=== PATIENT | male | born 1940 | race Caucasian/White ===

== ENCOUNTER 2016-06-28 19:05 | Emergency (ER) | payer MEDICARE, OTHER ==
[2016-06-28 19:59] LABS: PROTHROMBIN TIME 14.4 SEC (11.4-15.4)
[2016-06-28 20:02] LABS: ALANINE AMINOTRANSFERASE 95 U/L (21-72); ALBUMIN 4.7 g/dL (3.5-5.0); ALKALINE PHOSPHATASE 118 U/L (38-126); ANION GAP 13 (5-19); ASPARTATE AMINO TRANSFERASE 70 U/L (17-59); BILIRUBIN,TOTAL 1.5 mg/dL (0.2-1.3); BLOOD UREA NITROGEN 14 mg/dL (7-20); CALCIUM 9.8 mg/dL (8.4-10.2); CARBON DIOXIDE 23 mmol/L (22-30); CHLORIDE 106 mmol/L (98-107); CREATINE KINASE 134 U/L (55-170); CREATININE RESULT 0.96 mg/dL (0.52-1.25); GLUCOSE 81 mg/dL (75-110); POTASSIUM 4.2 mmol/L (3.6-5.0); TOTAL PROTEIN 7.9 g/dL (6.3-8.2)
[2016-06-28 20:05] LABS: ABSOLUTE BASOPHILS # (AUTO) 0.1 10^3/uL (0.0-0.2); ABSOLUTE EOSINOPHILS # (AUTO) 0.5 10^3/uL (0.0-0.6); ABSOLUTE LYMPHOCYTES (AUTO) 3.1 10^3/uL (0.5-4.7); ABSOLUTE MONOCYTES (AUTO) 1.6 10^3/uL (0.1-1.4); ABSOLUTE NEUT (AUTO) 3.4 10^3/uL (1.7-8.2); BASOPHILS % (AUTO) 1.2 % (0-2); EOSINOPHILS % (AUTO) 6.1 % (0-6); HEMATOCRIT 44.6 % (37.9-51.0); HEMOGLOBIN 15.6 g/dL (13.5-17.0); HGB HCT DIFFERENCE 2.2; MEAN CORPUSCULAR HEMOGLOBIN 34.2 pg (27.0-33.4); MEAN CORPUSCULAR VOLUME 98 fl (80-97); MONOCYTES % (AUTO) 18.6 % (3-13); RED BLOOD COUNT 4.57 10^6/uL (4.35-5.55); RED CELL DISTRIBUTION WIDTH 13.2 % (11.5-14.0); SEGMENTED NEUTROPHILS % (AUTO) 39.1 % (42-78); WHITE BLOOD COUNT 8.8 10^3/uL (4.0-10.5)
[2016-06-28 20:14] LABS: CREATINE KINASE MB 1.96 ng/mL (<4.55)
[2016-06-28 20:20] LABS: TROPONIN I < 0.012 ng/mL
[2016-06-28] MEDS ORDERED: ASPIRIN 81 MG TABLET, CHEWABLE PO ONE (21:23)
--- NOTE | 2016-06-28 21:25 | ER Document Report ---
ED General - General Chief Complaint: Weakness Stated Complaint: LEFT ARM WEAKNESS Notes: Patient is a 76-year-old male with past medical history of hyperlipidemia who presents with a brief episode of left upper extremity weakness and clumsiness. States that he noticed that he was unable to crop picker a television remote and felt like he could not feel where his hand was located. This occurred just prior to arrival but did spontaneously resolve. Nothing improved or worsen the symptoms. He has no history of similar symptoms in the past. He did not speak to his prior care physician regarding today's concerns. He denies any associated difficulty speaking, confusion, headache, chest pain, shortness of breath, or vomiting. - Related Data Allergies/Adverse Reactions: ceftriaxone [From Rocephin] Allergy (Verified 06/28/16 20:54) Past Medical History - General Information source: Patient - Social History Smoking Status: Never Smoker Frequency of alcohol use: None Drug Abuse: None Lives with: Spouse/Significant other Family History: Reviewed & Not Pertinent Review of Systems - Review of Systems Notes: Constitutional: Negative for fever. HENT: Negative for sore throat. Eyes: Negative for visual changes. Cardiovascular: Negative for chest pain. Respiratory: Negative for shortness of breath. Gastrointestinal: Negative for abdominal pain, vomiting or diarrhea. Genitourinary: Negative for dysuria. Musculoskeletal: Negative for back pain. Skin: Negative for rash. Neurological: Negative for headaches, weakness or numbness. 10 point ROS negative except as marked above and in HPI. Physical Exam - Vital signs Vitals: Resp BP Pulse Ox 21 H 156/79 H 96 06/28/16 19:13 06/28/16 19:13 06/28/16 19:13 Interpretation: Hypertensive Notes: PHYSICAL EXAMINATION: GENERAL: Well-appearing, well-nourished and in no acute distress. HEAD: Atraumatic, normocephalic. EYES: Pupils equal round and reactive to light, extraocular movements intact, sclera anicteric, conjunctiva are normal. ENT: nares patent, oropharynx clear without exudates. Moist mucous membranes. NECK: Normal range of motion, supple without lymphadenopathy LUNGS: Breath sounds clear to auscultation bilaterally and equal. No wheezes rales or rhonchi. HEART: Regular rate and rhythm without murmurs ABDOMEN: Soft, nontender, normoactive bowel sounds. No guarding, no rebound. No masses appreciated. EXTREMITIES: Normal range of motion, no pitting or edema. No cyanosis. NEUROLOGICAL: Face symmetric. Tongue protrudes midline. Extraocular motions intact. Pupils are 2 mm and equally reactive. Normal speech, normal gait. 5 out of 5 strength in both the distal and proximal upper and lower extremities bilaterally. Sensation is grossly intact throughout. Finger to nose testing normal. Pronator drift normal. PSYCH: Normal mood, normal affect. SKIN: Warm, Dry, normal turgor, no rashes or lesions noted. Course - Re-evaluation Re-evalutation: 06/28/16 21:20 Patient presents with symptoms most consistent with a TIA likely a lacunar distribution. Patient had isolated left upper extremity weakness which has since completely resolved. Weakness lasted for only 15 minutes. He did not have any additional symptoms. He has no neurologic deficits at this time and his NIH stroke scale is 0. Patient had a carotid Doppler done 2 months ago which was noted to be normal without any significant stenoses. He is already medically managed for hypertension and hyperlipidemia. He does not smoke. I have restarted him on a daily aspirin. I do not see an indication for admission at this time as patient is a 32 medically managed and will maximize his medical management with aspirin at this time. He has Y for a complete agreement with this plan and have declined admission to the hospital as an alternative management plan.At this time will discharge with return precautions and follow-up recommendations. Verbal discharge instructions given a the bedside and opportunity for questions given. Medication warnings reviewed. Patient is in agreement with this plan and has verbalized understanding of return precautions and the need for primary care follow-up in the next 24-72 hours. - Vital Signs Vital signs: Temp Pulse Resp BP Pulse Ox 98.2 F 78 18 158/78 H 95 06/28/16 21:42 06/28/16 21:55 06/28/16 21:55 06/28/16 21:55 06/28/16 21:50 - Laboratory Result Diagrams: 06/28/16 19:26 06/28/16 19:26 Laboratory results interpreted by me: 06/28/16 06/28/16 19:26 19:26 MCV 98 H MCH 34.2 H Seg Neutrophils % 39.1 L Monocytes % 18.6 H Eosinophils % 6.1 H Absolute Monocytes 1.6 H Total Bilirubin 1.5 H AST 70 H ALT 95 H - Diagnostic Test Radiology reviewed: Image reviewed, Reports reviewed Radiology results interpreted by me: 06/28/16 21:22 CT head: No acute intrarenal bleed - EKG Interpretation by Me Additional EKG results interpreted by me: 06/28/16 21:24 Sinus rhythm. Rate 80. No ST elevations or depressions. QTC 462. Discharge - Discharge Clinical Impression: TIA (transient ischemic attack) Qualifiers: Transient cerebral ischemia type: unspecified Qualified Code(s): G45.9 - Transient cerebral ischemic attack, unspecified Condition: Good Disposition: HOME, SELF-CARE Additional Instructions: Your symptoms today are most consistent with a transient ischemic attack also known as a mini stroke. You need to take 81 mg of aspirin daily. Continue your medications for blood pressure and cholesterol at home. Follow-up with your primary care doctor as well as your otolaryngology rep in the next 24-48 hours. Return to the emergency department immediately if you have recurrence of your symptoms, difficulty speaking, confusion, numbness, imbalance, or any other symptoms that are concerning to you.
[2016-06-28 21:56] VITALS: BP 158/78
--- NOTE | 2016-06-28 22:07 | EKG REPORT ---
SEVERITY:- NORMAL ECG - SINUS RHYTHM : Confirmed by: Lay Camarillo 28-Jun-2016 22:07:20
== END 2016-06-28 21:52 | disposition home or self-care (01) ==
LOC: ER 19:05
DX: G45.9 Transient cerebral ischemic attack, unspecified (principal); R53.1 Weakness; I10 Essential (primary) hypertension; E78.5 Hyperlipidemia, unspecified; Z79.899 Other long term (current) drug therapy; Z88.1 Allergy status to other antibiotic agents
CPT/HCPCS: 93005; 99285; 36415; 82553; 82550; 85025; 85610; 85730; 80053; 84484; 71010; 70450; 93010; A9270

== ENCOUNTER 2017-03-28 09:53 | Observation (INO) | payer MEDICARE, OTHER ==
--- NOTE | 2017-03-28 09:57 | ER Document Report ---
ED Medical Screen (RME) - General Stated Complaint: STROKE LIKE SYMPTOMS Notes: 77-year-old male patient woke up almost 3 hours ago with right upper and lower extremity weakness. Similar episode involving the left upper extremity in June 2016 that only lasted about 15 minutes. I have greeted and performed a rapid initial assessment of this patient. A comprehensive ED assessment and evaluation of the patient, analysis of test results and completion of the medical decision making process will be conducted by additional ED providers. - Related Data Allergies/Adverse Reactions: ceftriaxone [From Rocephin] Allergy (Verified 03/28/17 09:54)
--- NOTE | 2017-03-28 10:13 | ER Document Report ---
ED General - General Chief Complaint: S/S of Possible Stroke Stated Complaint: STROKE LIKE SYMPTOMS Time Seen by Provider: 03/28/17 09:57 Notes: 77-year-old male with hypertension presents with onset of perceived weakness and dizziness this morning. Acute. Moderate. Resolving. It was present when he woke up and got worse when he tried to walk to the bathroom. He describes it as "swaying" and attributes the weakness to his right leg. Did not fall. He initially told me he had "right-sided weakness" but now states that his right arm is not in fact week. He was brought to the ED as a possible stroke alert. He went to bed feeling fine. He specifically denies numbness tingling difficulty speaking and his states that his face looks baseline. TRAVEL OUTSIDE OF THE [place] IN LAST 30 DAYS: No - Related Data Allergies/Adverse Reactions: ceftriaxone [From Rocephin] Allergy (Verified 03/28/17 09:54) Home Medications: Current Home Medications Amlodipine Besylate [Norvasc 10 mg Tablet] 10 mg PO QPM 03/28/17 [History] Aspirin [Aspirin 81 mg Chewable Tablet] 81 mg PO DAILY 03/28/17 [History] Esomeprazole Magnesium [Nexium 24Hr] 20 mg PO DAILY 03/28/17 [History] Pregabalin [Lyrica] 150 mg PO BID 03/28/17 [History] Simvastatin [Zocor 10 mg Tablet] 10 mg PO QPM 03/28/17 [History] Past Medical History - Social History Smoking Status: Never Smoker Family History: Reviewed & Not Pertinent Patient has suicidal ideation: No Patient has homicidal ideation: No Renal/ Medical History: Denies: Hx Peritoneal Dialysis Review of Systems - Review of Systems Notes: REVIEW OF SYSTEMS GEN: Denies fever, chills, weight loss ENT: Denies sore throat, nasal discharge, ear pain EYES: Denies blurry vision, eye pain, discharge CV: Denies chest pain, palpitations, edema RESP: Denies cough, shortness of breath, wheezing GI: Denies abdominal pain, nausea, vomiting, diarrhea MSK: Right shoulder pain, left hip giving out, SKIN: Denies rash, skin lesions LYMPH: Denies swollen glands/lymph nodes NEURO: Dizziness gait instability, possible right-sided weakness denies headache , f PSYCH: Denies depression, suicidal or homicidal ideation PHYSICAL EXAMINATION General: No acute distress, well-nourished Head: Atraumatic, normocephalic ENT: Mouth normal, oropharynx moist, no exudates or tonsillar enlargement Eyes: Conjunctiva normal, pupils equal, lids normal Neck: No JVD, supple, no guarding CVS: Normal rate, regular rhythm, no murmurs Resp: No resp distress, equal and normal breath sounds bilaterally GI: Nondistended, soft, no tenderness to palpation, no rebound or guarding Ext: No deformities, no edema, normal range of motion in upper and lower ext Back: No CVA or midline TTP Skin: No rash, warm Lymphatic: No lymphadeopathy noted Neuro: Awake, alert. Face symmetric. GCS 15. Cranial nerves II through XII completely intact. No pronator drift. 5 out of 5 strength in all 4 extremities with normal sensation. Normal [id number], normal heel to gaffney. Fluent speech. Intact naming. Keenly awake and alert. Physical Exam - Vital signs Vitals: Pulse Resp BP Pulse Ox 77 16 169/82 H 97 03/28/17 09:54 03/28/17 09:54 03/28/17 09:54 03/28/17 09:54 Course - Re-evaluation Re-evalutation: 03/28/17 10:14 Patient seen immediately by me on arrival for acute neurologic deficit/ complaint. Patient presents with initial complaint of right-sided weakness but more clearly is complaining of difficulty walking and dizziness. His neurologic exam is completely normal and his NIH stroke score is 0. I do not think he is having a stroke or an acute bleed. CT done before my evaluation is read negative and I spoke with radiologist to confirm this. I will get an EKG and basic labs. We will observe him closely in the ED. His only risk factor for stroke is hypertension. Doubt TIA given the story. 03/28/17 10:50 Reassessed the patient. He still feels well. I got him up to walking. He has no ataxia, but he is dragging his right leg. My previous strength exam had been normal however his gait reveals some subtle weakness. He still out of the window for TPA but I will admit him for further workup. 03/28/17 11:[address] accepted by Dr[address] horowitz. Aspirin ordered. - Vital Signs Vital signs: Temp Pulse Resp BP Pulse Ox 98.4 F 77 14 130/82 H 97 03/28/17 10:13 03/28/17 09:54 03/28/17 11:01 03/28/17 11:01 03/28/17 11:01 - Laboratory Result Diagrams: 03/28/17 10:16 03/28/17 10:16 Laboratory results interpreted by me: 03/28/17 03/28/17 03/28/17 10:08 10:16 10:16 Hgb 17.2 H MCV 99 H MCH 35.3 H Sodium 146.2 H Glucose 145 H POC Glucose 170 H ALT 86 H Alkaline Phosphatase 156 H Creatine Kinase 231 H Total Protein 9.0 H Albumin 5.2 H - Diagnostic Test Radiology reviewed: Image reviewed, Reports reviewed - EKG Interpretation by Me EKG shows normal: Sinus rhythm Rhythm: NSR When compared to previous EKG there are: No significant change Critical Care Note - Critical Care Note Total time excluding time spent on procedures (mins): 35 - The above patient is critically ill. Not including procedures, but including direct re-evaluations, speaking with patient and/or consultants, interpreting results, and documenting , I spent the total amount of minute listed listed above on critical care time Discharge - Discharge Clinical Impression: Stroke Qualifiers: CVA mechanism: other Qualified Code(s): I63.8 - Other cerebral infarction Condition: Fair Disposition: ADMITTED INPATIENT Admitting Provider: Hospitalist Unit Admitted: Telemetry
--- NOTE | 2017-03-28 10:20 | RADIOLOGY REPORT (SQ) ---
EXAM DESCRIPTION: CT HEAD WITHOUT COMPLETED DATE/TIME: 03/28/2017 10:08 am REASON FOR STUDY: new right side weakness COMPARISON: 06/28/2016. TECHNIQUE: Axial images acquired through the brain without intravenous contrast. Images reviewed wi th bone, brain and subdural windows. Images stored on PACS. All CT scanners at this facility use dose modulation, iterative reconstruction, and/or weight based d osing when appropriate to reduce radiation dose to as low as reasonably achievable (ALARA). [facility]: Dose Right [facility]: CareDose [facility]: Dose Right [facility]: Teradose 4D [facility]: [employer] RADIATION DOSE: mGy. LIMITATIONS: None. FINDINGS: VENTRICLES: Prominent. CEREBRUM: No masses. No hemorrhage. No midline shift. Areas of low density in the white matter mos t likely due to chronic micro-vascular ischemic change. No evidence for acute infarction. CEREBELLUM: No masses. No hemorrhage. No alteration of density. No evidence for acute infarction. EXTRAAXIAL SPACES: Age-related involutional change. No fluid collections. No masses. ORBITS AND GLOBE: No intra- or extraconal masses. Normal contour of globe without masses. CALVARIUM: No fracture. PARANASAL SINUSES: No fluid or mucosal thickening. SOFT TISSUES: No mass or hematoma. OTHER: No other significant finding. IMPRESSION: CHRONIC CHANGES OF ATROPHY AND MICROVASCULAR ISCHEMIA. NO ACUTE PROCESS. EVIDENCE OF ACUTE STROKE: NO. COMMENT: Pertinent positive or negative findings of the imaging study reported as a CRITICAL EXAM lisy ramya WHITE at10:12 on 03/28/2017. Category of Critical Exam: Stroke protocol. TECHNICAL DOCUMENTATION: JOB ID: [id number] Quality ID # [id number]: Final reports with documentation of one or more dose reduction techniques (e.g., Au tomated exposure control, adjustment of the mA and/or kV according to patient size, use of iterative reconstruction technique) 2010 [employer]- All Rights Reserved
[2017-03-28 10:27] LABS: ABSOLUTE BASOPHILS # (AUTO) 0.1 10^3/uL (0.0-0.2); ABSOLUTE EOSINOPHILS # (AUTO) 0.4 10^3/uL (0.0-0.6); ABSOLUTE MONOCYTES (AUTO) 0.9 10^3/uL (0.1-1.4); ABSOLUTE NEUT (AUTO) 3.4 10^3/uL (1.7-8.2); BASOPHILS % (AUTO) 1.1 % (0-2); EOSINOPHILS % (AUTO) 5.6 % (0-6); HEMATOCRIT 48.1 % (37.9-51.0); HEMOGLOBIN 17.2 g/dL (13.5-17.0); HGB HCT DIFFERENCE 3.5; LYMPHOCYTES % (AUTO) 38.3 % (13-45); MEAN CORPUSCULAR HEMOGLOBIN 35.3 pg (27.0-33.4); MEAN CORPUSCULAR HGB CONC 35.7 g/dL (32.0-36.0); MEAN CORPUSCULAR VOLUME 99 fl (80-97); MONOCYTES % (AUTO) 11.1 % (3-13); RED BLOOD COUNT 4.87 10^6/uL (4.35-5.55); RED CELL DISTRIBUTION WIDTH 13.3 % (11.5-14.0); SEGMENTED NEUTROPHILS % (AUTO) 43.9 % (42-78); WHITE BLOOD COUNT 7.8 10^3/uL (4.0-10.5)
[2017-03-28 10:51] LABS: PROTHROMBIN TIME 13.1 SEC (11.4-15.4)
[2017-03-28 10:52] LABS: ALANINE AMINOTRANSFERASE 86 U/L (21-72); ALBUMIN 5.2 g/dL (3.5-5.0); ALKALINE PHOSPHATASE 156 U/L (38-126); ANION GAP 16 (5-19); ASPARTATE AMINO TRANSFERASE 59 U/L (17-59); BILIRUBIN,DIRECT 0.4 mg/dL (0.0-0.4); BILIRUBIN,TOTAL 1.3 mg/dL (0.2-1.3); BLOOD UREA NITROGEN 16 mg/dL (7-20); CALCIUM 9.6 mg/dL (8.4-10.2); CARBON DIOXIDE 25 mmol/L (22-30); CHLORIDE 105 mmol/L (98-107); CREATINE KINASE 231 U/L (55-170); GLUCOSE 145 mg/dL (75-110); POTASSIUM 3.8 mmol/L (3.6-5.0); SODIUM 146.2 mmol/L (137-145)
--- NOTE | 2017-03-28 11:05 | RADIOLOGY REPORT (SQ) ---
EXAM DESCRIPTION: CHEST SINGLE VIEW COMPLETED DATE/TIME: 03/28/2017 10:50 am REASON FOR STUDY: STROKE ALERT COMPARISON: 06/28/2016 and 06/14/2008. . EXAM PARAMETERS: NUMBER OF VIEWS: One view. TECHNIQUE: Single frontal radiographic view of the chest acquired. RADIATION DOSE: NA LIMITATIONS: None. FINDINGS: LUNGS AND PLEURA: Indistinct appearance in the left lung base with hazy appearance of the hemidiaphragm and costophrenic angle. Right lung generally clear. MEDIASTINUM AND HILAR STRUCTURES: No masses. Contour normal. HEART AND VASCULAR STRUCTURES: Heart upper limits of normal in size. Normal vasculature. BONES: Deformity of the lower left ribs. HARDWARE: None in the chest. OTHER: No other significant finding. IMPRESSION: CHANGES IN THE LEFT LUNG BASE WITH RIB DEFORMITY. SOME OF THIS IS CHRONIC AND PRESUMABL Y RELATED TO PRIOR SURGERY OR INJURY. HAZY APPEARANCE OF THE LEFT LUNG BASE SIMILAR TO THE X-RAY FRO M 06/28/2016. THIS MAY BE DUE TO SCARRING ALTHOUGH INFILTRATE OR PLEURAL EFFUSION/ PLEURAL THICKENING CANNOT BE EXCLUDED. TECHNICAL DOCUMENTATION: JOB ID: [id number]
[2017-03-28] MEDS ORDERED: ASPIRIN 325 MG TABLET PO ONE (11:19)
[2017-03-28] MEDS ORDERED: ACETAMINOPHEN 325 MG TABLET PO PRN (11:27)
[2017-03-28] MEDS ORDERED: ONDANSETRON 4 MG TAB.RAPDIS PO PRN ×2 (11:27→12:30)
--- NOTE | 2017-03-28 12:52 | RADIOLOGY REPORT (SQ) ---
EXAM DESCRIPTION: MRI HEAD WITHOUT COMPLETED DATE/TIME: 03/28/2017 12:39 pm REASON FOR STUDY: stroke COMPARISON: 03/28/2017 and 06/28/2016. TECHNIQUE: Multiplanar imaging includes non-contrasted T1, T2, FLAIR, and diffusion with ADC map seq uences. Images stored on PACS. LIMITATIONS: None. FINDINGS: ANATOMY: No anomalies. Normal vascular flow voids. Pituitary fossa normal. CSF SPACES: Atrophy induced prominence of ventricles and CSF spaces. CEREBRUM: High signal intensity lesions scattered throughout the white matter on FLAIR imaging with d istribution suggesting micro-vascular ischemic changes. No evidence of hemorrhage, mass, or extraaxi al fluid collection. POSTERIOR FOSSA: No signal alteration. No hemorrhage. No edema, masses or mass effect. Internal ceci tory canals, cerebello-pontine angles, mastoids normal. DIFFUSION IMAGING: Linear area of restricted diffusion in the medial left parietal lobe. ORBITS: No masses. Globes normal. PARANASAL SINUSES: No fluid levels. Mucosa normal. OTHER: No other significant finding. IMPRESSION: ATROPHY AND CHRONIC MICRO-VASCULAR ISCHEMIC CHANGES. LINEAR AREA OF RESTRICTED DIFFUSIO N IN THE MEDIAL LEFT PARIETAL LOBE CONSISTENT WITH ACUTE INFARCT. THIS IS AT THE INTERFACE BETWEEN T HE LEFT ANTERIOR AND MIDDLE CEREBRAL ARTERY TERRITORIES AND COULD BE A WATERSHED INFARCT. EVIDENCE OF ACUTE STROKE: YES. LEFT LALA TECHNICAL DOCUMENTATION: JOB ID: [id number]- All Rights Reserved
[2017-03-28] MEDS ORDERED: ONDANSETRON HCL INJ/PF 4 MG/2 ML SDV ONE (21:11)
--- NOTE | 2017-03-28 21:33 | EKG REPORT ---
SEVERITY:- NORMAL ECG - SINUS RHYTHM : Confirmed by: Lay Camarillo 28-Mar-2017 21:31:53
[2017-03-28] MEDS ORDERED: ONDANSETRON HCL INJ/PF 4 MG/2 ML SDV IV ONE (22:00)
[2017-03-28] MEDS ORDERED: ATORVASTATIN CALCIUM 80 MG TABLET PO SCH (22:00)
[2017-03-28] MEDS: PREGABALIN 75 MG CAPSULE PO SCH (23:27)
[2017-03-29 06:56] LABS: CHOLESTEROL 214.21 mg/dL (0-200); Direct HDL 39 mg/dL (>40); TRIGLYCERIDES 174 mg/dL (<150)
[2017-03-29 07:07] LABS: DIRECT LDL 142 mg/dL (<100)
[2017-03-29 07:25] LABS: THYROID STIMULATING HORMONE 2.37 uIU/mL (0.47-4.68)
[2017-03-29 08:09] LABS: FOLATE > 20.00 ng/mL (>2.76); VLDL CHOLESTEROL 34.8 mg/dL (10-31)
--- NOTE | 2017-03-29 08:09 | PDOC H&P ---
History of Present Illness Admission Date/PCP: 03/28/17 11:45 Patient complains of: Right leg weakness History of Present Illness: CHRIS AGUDELO is a 77-year-old right handed history of coronary artery disease, hypertension, dyslipidemia and chronic pain who presents with history of right leg weakness. Patient states when he went to bed last night he was normal when he woke up this morning the right leg was weak. Patient does not feel any numbness in his leg however when he stood up to walk he could not hold his own weight. He states he was unsteady and wobbling all over the place. Patient denies any change in vision slurred speech facial droop or focal weakness in any other part of his body. Patient states this happened before with his left arm becoming weak after he stopped taking his aspirin. Patient was told that he had a TIA. Patient has since then went back on his baby aspirin. In the ED patient was sitting up in the bed in no acute distress. Patient states he feels fine although a little bit weak. Patient states he has been feeling weak for quite some time now. The hospitalist was called to admit for further evaluate patient for possible stroke. Past Medical History Cardiac Medical History: Reports: Coronary Artery Disease, Hypertension Pulmonary Medical History: Reports: None EENT Medical History: Reports: None Neurological Medical History: Reports: Other - TIA Endocrine Medical History: Reports: None Renal/ Medical History: Reports: Nephrolithiasis Malignancy Medical History: Reports: None GI Medical History: Reports: None Musculoskeltal Medical History: Reports: None Skin Medical History: Reports: None Psychiatric Medical History: Reports: None Traumatic Medical History: Reports: None Hematology: Reports: None Past Surgical History Past Surgical History: Reports: Splenectomy, Other - Pneumonectomy Social History Information Source: Patient Lives with: Spouse/Significant other Smoking Status: Former Smoker Frequency of Alcohol Use: None Hx Recreational Drug Use: No Hx Prescription Drug Abuse: No - Advance Directive Resuscitation Status: Full Code Family History Family History: CAD, Malignancy Parental Family History Reviewed: No Children Family History Reviewed: No Sibling(s) Family History Reviewed.: No Medication/Allergy Home Medications: Amlodipine Besylate [Norvasc 10 mg Tablet] 10 mg PO QPM 03/28/17 Aspirin [Aspirin 81 mg Chewable Tablet] 81 mg PO DAILY 03/28/17 Pregabalin [Lyrica] 150 mg PO BID 03/28/17 Simvastatin [Zocor 10 mg Tablet] 10 mg PO QPM 03/28/17 Allergies/Adverse Reactions: ceftriaxone [From Rocephin] Allergy (Verified 03/28/17 09:54) Review of Systems Constitutional: PRESENT: fatigue. ABSENT: chills, fever(s), headache(s), weight gain, weight loss Eyes: ABSENT: visual disturbances Ears: ABSENT: hearing changes Cardiovascular: ABSENT: chest pain, dyspnea on exertion, edema, orthropnea, palpitations Respiratory: ABSENT: cough, hemoptysis Gastrointestinal: ABSENT: abdominal pain, constipation, diarrhea, hematemesis, hematochezia, nausea, vomiting Genitourinary: ABSENT: dysuria, hematuria Musculoskeletal: ABSENT: joint swelling Integumentary: ABSENT: rash, wounds Neurological: PRESENT: focal weakness - Right leg weakness. ABSENT: abnormal gait, abnormal speech, confusion, dizziness, syncope Psychiatric: ABSENT: anxiety, depression, homidical ideation, suicidal ideation Endocrine: ABSENT: cold intolerance, heat intolerance, polydipsia, polyuria Hematologic/Lymphatic: ABSENT: easy bleeding, easy bruising Physical Exam Vital Signs: Temp Pulse Resp BP Pulse Ox 98.0 F 66 16 154/70 H 94 03/28/17 17:10 03/28/17 17:10 03/28/17 17:10 03/28/17 17:10 03/28/17 17:10 Intake & Output 03/27/17 03/28/17 03/29/17 06:59 06:59 06:59 Intake Total 300 Balance 300 General appearance: PRESENT: no acute distress, well-developed, well-nourished Head exam: PRESENT: normocephalic Eye exam: PRESENT: conjunctiva pink, EOMI, PERRLA. ABSENT: scleral icterus Ear exam: PRESENT: normal external ear exam Mouth exam: PRESENT: moist Neck exam: ABSENT: carotid bruit, JVD, lymphadenopathy, thyromegaly Respiratory exam: PRESENT: clear to auscultation khoa. ABSENT: rales, rhonchi, wheezes Cardiovascular exam: PRESENT: RRR. ABSENT: diastolic murmur, rubs, systolic murmur Pulses: PRESENT: normal dorsalis pedis pul Vascular exam: PRESENT: normal capillary refill GI/Abdominal exam: PRESENT: normal bowel sounds, soft. ABSENT: distended, guarding, mass, organolmegaly, rebound, tenderness Rectal exam: PRESENT: deferred Extremities exam: PRESENT: full ROM. ABSENT: calf tenderness, clubbing, pedal edema Neurological exam: PRESENT: alert, awake, oriented to person, oriented to place , oriented to time, oriented to situation, CN II-XII grossly intact, other - Mild right leg weakness.. ABSENT: motor sensory deficit Psychiatric exam: PRESENT: appropriate affect, normal mood. ABSENT: homicidal ideation, suicidal ideation Skin exam: PRESENT: dry, intact, warm. ABSENT: cyanosis, rash Results Impressions: Chest X-Ray 03/28/17 00:00 IMPRESSION: CHANGES IN THE LEFT LUNG BASE WITH RIB DEFORMITY. SOME OF THIS IS CHRONIC AND PRESUMABLY RELATED TO PRIOR SURGERY OR INJURY. HAZY APPEARANCE OF THE LEFT LUNG BASE SIMILAR TO THE X-RAY FROM 06/28/2016. THIS MAY BE DUE TO SCARRING ALTHOUGH INFILTRATE OR PLEURAL EFFUSION/ PLEURAL THICKENING CANNOT BE EXCLUDED. Head MRI 03/28/17 00:00 IMPRESSION: ATROPHY AND CHRONIC MICRO-VASCULAR ISCHEMIC CHANGES. LINEAR AREA OF RESTRICTED DIFFUSION IN THE MEDIAL LEFT PARIETAL LOBE CONSISTENT WITH ACUTE INFARCT. THIS IS AT THE INTERFACE BETWEEN THE LEFT ANTERIOR AND MIDDLE CEREBRAL ARTERY TERRITORIES AND COULD BE A WATERSHED INFARCT. EVIDENCE OF ACUTE STROKE: YES. LEFT LALA Head CT 03/28/17 09:54 IMPRESSION: CHRONIC CHANGES OF ATROPHY AND MICROVASCULAR ISCHEMIA. NO ACUTE PROCESS. EVIDENCE OF ACUTE STROKE: NO. Assessment & Plan - Diagnosis (1) Stroke Qualifiers: CVA mechanism: other Qualified Code(s): I63.8 - Other cerebral infarction Is this a current diagnosis for this admission?: Yes Plan: CVA. CT scan shows a linear area of restricted diffusion in the medial left parietal lobe consistent with acute infarct. Possible a watershed infarct. She currently on high-dose aspirin and started on Plavix. Cardiac echo carotid Dopplers ordered. PT OT consulted. No blood pressure medication started as to encourage higher blood pressures for adequate perfusion to the brain. 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 Will check lipid panel and hemoglobin A1c in the morning. (2) Weakness generalized Is this a current diagnosis for this admission?: Yes Plan: Patient has been feeling weak for sometime. Will check B12 and folate level. Will check TSH and Vitamin D level. (3) Lipidemia Is this a current diagnosis for this admission?: Yes Plan: Continue statin. (4) CAD (coronary artery disease) Is this a current diagnosis for this admission?: Yes Plan: Patient has stenting in 1999 or 2000. Continue aspirin and statin. Patient does not have chest pain at this time. (5) Essential hypertension Is this a current diagnosis for this admission?: Yes Plan: Continue to monitor. No antihypertensive at this time to allow for permissive hypertension. - Time Time Spent: 30 to 50 Minutes Medications reviewed and adjusted accordingly: Yes Anticipated discharge: Home - Inpatient Certification Medical Necessity: Need for Neurological Checks - Patient has accute stress.
[2017-03-29 08:20] VITALS: BP 137/71
[2017-03-29] MEDS ORDERED: ASPIRIN 325 MG TABLET, ENT COATED PO SCH (10:00)
[2017-03-29] MEDS ORDERED: CLOPIDOGREL BISULFATE 75 MG TABLET PO SCH (10:00)
[2017-03-29] MEDS: PREGABALIN 75 MG CAPSULE PO SCH (10:33)
[2017-03-29] MEDS ORDERED: ONDANSETRON HCL INJ/PF 4 MG/2 ML SDV IV PRN (11:57)
[2017-03-29] MEDS ORDERED: NAPROXEN 250 MG TABLET PO ONE (12:00)
--- NOTE | 2017-03-29 16:54 | XCELERA REPORT ---
[address] [address] Transthoracic Echocardiogram Report Name: CHRIS AGUDELO Age: 77 yrs Gender: Male : 1940 Patient Status: Inpatient Patient Location: [address] [place] [address] Study Date: 03/28/2017 02:11 PM Height: 72 in Weight: 212 lb BSA: 2.2 m2 Procedure: A two-dimensional transthoracic echocardiogram with color flow and Doppler was performed. Study Quality: Fair. Reason For Study: TIA History: TIA. Ordering Physician: APPLE FERGUSON Performed By: Karen Loza Interpretation Summary There is no obvious cardiac source of embolus noted on this transthoracic echocardiogram. Follow-up with a JIM is suggested if cardiac source is still suspected. The left ventricle is normal in size. There is normal left ventricular wall thickness. LV EF is 65% Left ventricular systolic function is normal. Doppler measurements suggest impaired left ventricular relaxation, which is associated with grade I/IV or mild diastolic dysfunction The left ventricular wall motion is normal. There is no thrombus. The right ventricle is grossly normal size. The left atrial size is normal. There is mild mitral valve prolapse. There is no mitral valve stenosis. There is a trace amount of mitral regurgitation There is no aortic valvular vegetation. There is no aortic valve stenosis There is no LVOT obstruction. No aortic regurgitation is present. There is no tricuspid stenosis. There is a trace amount of tricuspid regurgitation Right ventricular systolic pressure is normal. RVSP is 29 mm of Hg ,with RA mean of 5. There is no pulmonic valvular stenosis. There is a trace amount of pulmonic regurgitation The aortic root is normal size. There is no pericardial effusion. There is no obvious cardiac source of embolus noted on this transthoracic echocardiogram. Follow-up with a JIM is suggested if cardiac source is still suspected MMode/2D Measurements & Calculations RVDd: 3.1 cm LVIDd: 5.7 cm FS: 35.3 % Ao root diam: 2.7 cm IVSd: 1.0 cm LVIDs: 3.7 cm EDV(Teich): 162.3 ml LVPWd: 1.0 cm ESV(Teich): 58.4 ml Ao root area: 5.5 cm2 EF(Teich): 64.0 % LA dimension: 3.9 cm Doppler Measurements & Calculations MV E max daren: MV P1/2t max daren: Ao V2 max: LV V1 max P.4 cm/sec 47.9 cm/sec 97.7 cm/sec 3.3 mmHg MV A max daren: MV P1/2t: 105.4 msec Ao max PG: LV V1 max: 75.0 cm/sec 3.8 mmHg 90.3 cm/sec MV E/A: 0.63 MVA(P1/2t): 2.1 cm2 MV dec slope: 133.1 cm/sec2 MV dec time: 0.35 sec PA V2 max: PI end-d daren: TR max daren: 81.9 cm/sec 138.5 cm/sec 242.8 cm/sec PA max PG: TR max P.7 mmHg 23.6 mmHg Left Ventricle The left ventricle is normal in size. There is normal left ventricular wall thickness. LV EF is 65%. Left ventricular systolic function is normal. Doppler measurements suggest impaired left ventricular relaxation, which is associated with grade I/IV or mild diastolic dysfunction. The left ventricular wall motion is normal. There is no thrombus. There is no ventricular septal defect visualized. Right Ventricle The right ventricle is grossly normal size. Atria The right atrium is normal. The left atrial size is normal. The interatrial septum is intact with no evidence for an atrial septal defect. Mitral Valve There is mild mitral valve prolapse. There is no vegetation seen on the mitral valve. There is no mitral valve stenosis. There is a trace amount of mitral regurgitation. Aortic Valve There is no aortic valvular vegetation. There is no aortic valve stenosis. There is no LVOT obstruction. No aortic regurgitation is present. Tricuspid Valve There is no tricuspid stenosis. There is a trace amount of tricuspid regurgitation. Right ventricular systolic pressure is normal. RVSP is 29 mm of Hg ,with RA mean of 5. Pulmonic Valve There is no pulmonic valvular stenosis. There is a trace amount of pulmonic regurgitation. Great Vessels The aortic root is normal size. Effusions There is no pericardial effusion. : APPLE FERGUSON > Jenna Byrd
--- NOTE | 2017-03-29 18:33 | PDOC DISCHARGE SUMMARY ---
General - Admit/Disc Date/PCP Admission Date/Primary Care Provider: 03/28/17 11:45 Discharge Date: 03/29/17 - Discharge Diagnosis (1) Stroke Is this a current diagnosis for this admission?: Yes (2) Weakness generalized Is this a current diagnosis for this admission?: Yes (3) Lipidemia Is this a current diagnosis for this admission?: Yes (4) CAD (coronary artery disease) Is this a current diagnosis for this admission?: Yes (5) Essential hypertension Is this a current diagnosis for this admission?: Yes - Additional Information Resuscitation Status: Full Code Discharge Diet: Cardiac Discharge Activity: Activity As Tolerated Home Medications: Amlodipine Besylate [Norvasc 10 mg Tablet] 10 mg PO QPM 03/28/17 Pregabalin [Lyrica] 150 mg PO BID 03/28/17 Aspirin [Ecotrin 325 mg EC Tablet] 325 mg PO DAILY #30 tabec 03/29/17 Atorvastatin Calcium [Lipitor 80 mg Tablet] 80 mg PO QHS #30 tablet 03/29/17 Clopidogrel Bisulfate [Plavix 75 mg Tablet] 75 mg PO DAILY 30 Days #30 tablet Ibuprofen [Motrin 800 mg Tablet] 800 mg PO Q8H PRN #30 tab 03/29/17 History of Present Illness History of Present Illness: CHRIS AGUDELO is a 77-year-old right handed history of coronary artery disease, hypertension, dyslipidemia and chronic pain who presents with history of right leg weakness. Patient states when he went to bed last night he was normal when he woke up this morning the right leg was weak. Patient does not feel any numbness in his leg however when he stood up to walk he could not hold his own weight. He states he was unsteady and wobbling all over the place. Patient denies any change in vision slurred speech facial droop or focal weakness in any other part of his body. Patient states this happened before with his left arm becoming weak after he stopped taking his aspirin. Patient was told that he had a TIA. Patient has since then went back on his baby aspirin. In the ED patient was sitting up in the bed in no acute distress. Patient states he feels fine although a little bit weak. Patient states he has been feeling weak for quite some time now. The hospitalist was called to admit for further evaluate patient for possible stroke. Hospital Course Hospital Course: (1) Stroke CVA. CT scan shows a linear area of restricted diffusion in the medial left parietal lobe consistent with acute infarct. Possible a watershed infarct. Patient continued on high dose aspirin and plavix. Patient also on high dose statin. Cardiac echo shows normal EF with grade 1 diastolic dysfunction. Carotid studies still pending. Will follow up. PT OT consulted. Patient was allowed to have permissive hypertension. Patient will be restarted on his antihypertensive on discharge. Patient referred to his pig handler for event monitor. To rule out any arrhythmia as a cause of his stroke as he had an event in June and now again this month. Will also refer the patient to neurology for follow up. Patient discharge with a walker to out patient rehab. (2) Weakness generalized Patient TSH, B12, folate and T4 levels are all within normal levels. Vitamin D level is still pending. (3) Lipidemia Continue statin. (4) CAD (coronary artery disease) Patient has stenting in 1999 or 2000. Continue aspirin and statin. Patient does not have chest pain at this time. (5) Essential hypertension Patient allowed to have permissive hypertension. Patient will resume his blood pressure medication on discharge. Physical Exam Vital Signs: Temp Pulse Resp BP Pulse Ox 97.6 F 76 16 137/71 H 97 03/29/17 16:57 03/29/17 16:57 03/29/17 16:57 03/29/17 08:00 03/29/17 16:57 Intake & Output 03/28/17 03/29/17 03/30/17 06:59 06:59 06:59 Intake Total 775 Balance 775 Weight 97 kg General appearance: PRESENT: no acute distress, well-developed, well-nourished Head exam: PRESENT: atraumatic, normocephalic Eye exam: PRESENT: conjunctiva pink, EOMI, PERRLA. ABSENT: scleral icterus Ear exam: PRESENT: normal external ear exam Mouth exam: PRESENT: moist, tongue midline Neck exam: ABSENT: carotid bruit, JVD, lymphadenopathy, thyromegaly Respiratory exam: PRESENT: clear to auscultation khoa. ABSENT: rales, rhonchi, wheezes Cardiovascular exam: PRESENT: RRR. ABSENT: diastolic murmur, rubs, systolic murmur Pulses: PRESENT: normal dorsalis pedis pul Vascular exam: PRESENT: normal capillary refill GI/Abdominal exam: PRESENT: normal bowel sounds, soft. ABSENT: distended, guarding, mass, organolmegaly, rebound, tenderness Rectal exam: PRESENT: deferred Extremities exam: PRESENT: full ROM. ABSENT: calf tenderness, clubbing, pedal edema Musculoskeletal exam: PRESENT: other - decreased range of motion of the right shoulder. Neurological exam: PRESENT: alert, awake, oriented to person, oriented to place , oriented to time, oriented to situation, CN II-XII grossly intact, other - right leg weakness. ABSENT: motor sensory deficit Psychiatric exam: PRESENT: appropriate affect, normal mood. ABSENT: homicidal ideation, suicidal ideation Skin exam: PRESENT: dry, intact, warm. ABSENT: cyanosis, rash Results Laboratory Results: 03/29/17 03/29/17 05:35 05:35 Triglycerides 174 H Cholesterol 214.21 H LDL Cholesterol Direct 142 H VLDL Cholesterol 34.8 H HDL Cholesterol 39 L Vitamin B12 601.0 Folate > 20.00 TSH 2.37 Free T4 0.87 Impressions: Chest X-Ray 03/28/17 00:00 IMPRESSION: CHANGES IN THE LEFT LUNG BASE WITH RIB DEFORMITY. SOME OF THIS IS CHRONIC AND PRESUMABLY RELATED TO PRIOR SURGERY OR INJURY. HAZY APPEARANCE OF THE LEFT LUNG BASE SIMILAR TO THE X-RAY FROM 06/28/2016. THIS MAY BE DUE TO SCARRING ALTHOUGH INFILTRATE OR PLEURAL EFFUSION/ PLEURAL THICKENING CANNOT BE EXCLUDED. Head MRI 03/28/17 00:00 IMPRESSION: ATROPHY AND CHRONIC MICRO-VASCULAR ISCHEMIC CHANGES. LINEAR AREA OF RESTRICTED DIFFUSION IN THE MEDIAL LEFT PARIETAL LOBE CONSISTENT WITH ACUTE INFARCT. THIS IS AT THE INTERFACE BETWEEN THE LEFT ANTERIOR AND MIDDLE CEREBRAL ARTERY TERRITORIES AND COULD BE A WATERSHED INFARCT. EVIDENCE OF ACUTE STROKE: YES. LEFT LALA Head CT 03/28/17 09:54 IMPRESSION: CHRONIC CHANGES OF ATROPHY AND MICROVASCULAR ISCHEMIA. NO ACUTE PROCESS. EVIDENCE OF ACUTE STROKE: NO. Qualifiers PATEINT BEING DISCHARGED WITH ANY OF THE FOLLOWING DIAGNOSIS?: Stroke VTE patient discharged on overlapping Therapy?: Yes Stroke Pt being discharged on Anti-thrombolytic therapy?: Yes Stroke Pt being discharged on Anti-coagulation therapy?: No Stroke Pt being discharged on Statins?: Yes Plan Time Spent: Greater than 30 Minutes
[2017-03-31 12:45] LABS: VITAMIN D 25-HYDROXY 41.6 ng/mL (30.0-100.0)
--- NOTE | 2017-04-01 10:38 | CAROTID DOPPLER PRO FEE REPORT ---
CAROTID DUPLEX DOPPLER REPORT PATIENT NAME: CHRIS AGUDELO ROOM#: [id number] DATE OF STUDY: 03/28/2017 DATE OF : 1940 REFERRING MD: APPLE FERGUSON M.D. ORDER NO: [id number] TECHNOLOGIST: Maria R Loza INDICATION: TIA STUDY: The color carotid duplex scan was performed with real time images and real time Doppler velocity measurements. Real time images indicated moderate bilateral plaque formation, smooth in nature. Doppler velocity measurements were as follows: MEASUREMENT: RIGHT LEFT CCA PSV (prox/mid) 140 cm/sec 108 cm/sec CCA PSV (distal) 66 cm/sec 83 cm/sec CCA EDV (prox/mid) 24 cm/sec 20 cm/sec CCA EDV (distal) 17 cm/sec 16 cm/sec ICA PSV (proximal) 97 cm/sec 150 cm/sec ICA PSV (distal) 76 cm/sec 127 cm/sec ICA EDV (proximal) 27 cm/sec 26 cm/sec ICA EDV (distal) 13 cm/sec 25 cm/sec ECA 101 cm/sec 94 cm/sec ICA/CCA RATIO: 1.5 on the right and 1.8 on the left. Vertebrals are patent. Flow is cephalad. FINAL IMPRESSION: MODERATE BILATERAL PLAQUE FORMATION WITH APPROXIMATELY 50% STENOTIC FLOW IN THE RIGHT INTERNAL CAROTID ARTERY, 50-69% STENOTIC FLOW IN THE LEFT INTERNAL CAROTID ARTERY. INTERPRETING PHYSICIAN: JONATHAN SALINAS M.D. /: EROS TT: [id number] ID: [id number] /: [id number] TD: 1510 JOB: [id number] cc:Jairon SELF M.D. >
[2017-04-03 08:22] LABS: VITAMIN D 1,25 DIHYDROXY 65.4 pg/mL (19.9-79.3)
== END 2017-03-29 17:07 | disposition home or self-care (01) ==
LOC: ER 09:53 → EH 11:45 → INTOOBSV 11:45 → EH 11:45 → UNDOADMOB 11:45 → 3W 14:25
PROVIDERS: ADMIT Hospitalist; ATTEND Hospitalist
DX: I63.8 Other cerebral infarction (principal); R53.1 Weakness; E78.5 Hyperlipidemia, unspecified; I10 Essential (primary) hypertension; I25.10 Atherosclerotic heart disease of native coronary artery without angina pectoris; G89.29 Other chronic pain; R26.81 Unsteadiness on feet; M25.511 Pain in right shoulder; R29.898 Other symptoms and signs involving the musculoskeletal system; Z79.899 Other long term (current) drug therapy; Z79.82 Long term (current) use of aspirin; Z95.5 Presence of coronary angioplasty implant and graft; Z86.73 Personal history of transient ischemic attack (TIA), and cerebral infarction without residual deficits; Z90.81 Acquired absence of spleen; Z90.2 Acquired absence of lung [part of]; Z82.49 Family history of ischemic heart disease and other diseases of the circulatory system; Z87.891 Personal history of nicotine dependence
CPT/HCPCS: 93005; 99291; 36415 ×2; 84439; 82306; 82962; 82607; 82550; 82746; 84443; 85025; 85610; 80053; 84484; 82652; 83036; 80061; 93880 ×2; 93306; 70551; 71010; 70450; 93010; 97110 ×2; 97116; 97163; 97535; 97166; G0378 ×3; A9270 ×6; J3490; J2405 ×2; G8978; G8979; G8984; G8985

== ENCOUNTER → 2017-05-23 | Outpatient (CLI) | payer MEDICARE, OTHER ==
--- NOTE | 2017-05-23 10:42 | RADIOLOGY REPORT (SQ) ---
EXAM DESCRIPTION: MRI RT UPPER JOINT WITHOUT COMPLETED DATE/TIME: 05/23/2017 9:46 am REASON FOR STUDY: M25.511 PAIN IN RIGHT SHOULDER M25.511 PAIN IN RIGHT SHOULDER COMPARISON: None. TECHNIQUE: RIGHT shoulder images acquired and stored on PACS. Multiplanar imaging to include fat sen sitive sequences such as T1, water sensitive sequences such as FST2/STIR, cartilage sensitive sequenc es such as FSPD/gradient-echo sequences. LIMITATIONS: None. FINDINGS: BONE MARROW AND CORTEX: No worrisome bone lesions or marrow replacement. No occult fractur es. JOINT OR BURSAL EFFUSION: There is a small amount of fluid in the subacromial/subdeltoid bursa, and t his small glenohumeral joint effusion with fluid in the subcoracoid recess GLENO-HUMERAL ARTICULATION: Normal articulation. No subluxation. No cystic change. No osteophytes or cartilage loss. ACROMION AND AC JOINT: Type 4 acromion with bulky acromioclavicular joint hypertrophy on sagittal im age 14. There is bony spurring along the undersurface of the acromion on coronal image 12. ROTATOR CUFF AND INTERVAL: The anterior half of the supraspinatus tendon is diffusely thickened and h igh in signal from tendinopathy complex tear. This is best shown on sagittal images 4-12 and coronal images 6-11. Infraspinatus, subscapularis intact No rotator interval tear. No rotator interval thickening to suggest adhesive capsulitis. LABRUM AND BICEPS LABRAL COMPLEX: Intact. No labral tear. Intra-articular long-head biceps tendon n ormal. Distal biceps in normal location in bicipital groove. REMAINDER OF LABRUM AND IGHL : No gross tear or paralabral cyst formation. Labral evaluation is less than optimal without joint distention. No thickening of IGHL to suggest adhesive capsulitis. PERIARTICULAR AND ADJACENT SOFT TISSUES: No masses or abnormal nodes. OTHER: No other significant finding. IMPRESSION: Bulky acromioclavicular joint hypertrophy with narrowing of the subacromial space Diffuse high-grade tendinopathy of supraspinatus tendon with a complex full thickness tear TECHNICAL DOCUMENTATION: JOB ID: [id number] [employer]- All Rights Reserved
== END ==
LOC: RAD 08:42
PROVIDERS: ATTEND Orthopaedic Surgery Sports Medicine
DX: M25.511 Pain in right shoulder (principal)

== ENCOUNTER 2017-06-20 16:36 | Inpatient (IN) | payer MEDICARE, OTHER ==
[2017-06-20 17:51] LABS: ABSOLUTE BASOPHILS # (AUTO) 0.1 10^3/uL (0.0-0.2); ABSOLUTE EOSINOPHILS # (AUTO) 0.7 10^3/uL (0.0-0.6); ABSOLUTE LYMPHOCYTES (AUTO) 6.9 10^3/uL (0.5-4.7); ABSOLUTE MONOCYTES (AUTO) 1.9 10^3/uL (0.1-1.4); ABSOLUTE NEUT (AUTO) 4.2 10^3/uL (1.7-8.2); EOSINOPHILS % (AUTO) 4.8 % (0-6); HEMATOCRIT 44.3 % (37.9-51.0); HEMOGLOBIN 15.4 g/dL (13.5-17.0); MEAN CORPUSCULAR HEMOGLOBIN 34.4 pg (27.0-33.4); MEAN CORPUSCULAR HGB CONC 34.8 g/dL (32.0-36.0); MEAN CORPUSCULAR VOLUME 99 fl (80-97); MONOCYTES % (AUTO) 13.6 % (3-13); PLATELET COUNT 281 10^3/uL (150-450); RED BLOOD COUNT 4.48 10^6/uL (4.35-5.55); RED CELL DISTRIBUTION WIDTH 13.4 % (11.5-14.0); SEGMENTED NEUTROPHILS % (AUTO) 30.6 % (42-78); TOTAL CELLS COUNTED % (AUTO) 100 %; WHITE BLOOD COUNT 13.8 10^3/uL (4.0-10.5)
--- NOTE | 2017-06-20 17:57 | ER Document Report ---
ED General - General Chief Complaint: Headache Stated Complaint: HEADACHE Time Seen by Provider: 06/20/17 17:57 Notes: 77-year-old male to the emergency department via EMS for worse headache of his life. States that he had a stroke approximately a month ago. On Plavix. Was driving today and had sudden onset of the worst headache of his life. It subsided and then began to get worse again. Located on the left side of his head. Does complain of nausea as well. No chest pain. No fever. No chills. No sweats. No neck stiffness. No other complaints. Sharp in nature. Stabbing. Located on the left side of the head TRAVEL OUTSIDE OF THE [place] IN LAST 30 DAYS: No - HPI Onset: Just prior to arrival Onset/Duration: Sudden Quality of pain: Sharp, Stabbing, Throbbing Severity: Severe Pain Level: 5 Associated symptoms: Nausea - Related Data Allergies/Adverse Reactions: ceftriaxone [From Rocephin] Allergy (Verified 03/28/17 09:54) Past Medical History - General Information source: Patient - Social History Smoking Status: Never Smoker Cigarette use (# per day): No Frequency of alcohol use: None Drug Abuse: None Lives with: Alone, Family Family History: CAD, Malignancy - Past Medical History Cardiac Medical History: Reports: Hx Coronary Artery Disease, Hx Hypertension Renal/ Medical History: Denies: Hx Peritoneal Dialysis Past Surgical History: Reports: Hx Abdominal Surgery, Other - Pneumonectomy Review of Systems - Review of Systems Constitutional: denies: Chills, Fever, Malaise, Weakness EENT: denies: Eye pain, Eye discharge, Blurred vision, Double vision, Nose congestion, Mouth swelling, Dental problem, Vertigo Cardiovascular: denies: Chest pain, Palpitations, Heart racing, Orthopnea, Dyspnea, Syncope, Dizziness, Lightheaded Gastrointestinal: Nausea. denies: Abdomen distended, Abdominal pain, Diarrhea, Vomiting Genitourinary: denies: Burning, Dysuria, Discharge Musculoskeletal: denies: Back pain, Gout, Joint pain, Joint swelling, Muscle pain, Muscle stiffness, Neck pain Skin: denies: Lesions, Lumps, Rash Hematologic/Lymphatic: denies: Anemia, Blood clots, Easy bleeding, Easy bruising Neurological/Psychological: Headaches, Other - Recent CVA with left lower extremity mild weakness. denies: Paralysis, Seizure, Lost consciousness Physical Exam - Vital signs Vitals: Resp Pulse Ox 16 96 06/20/17 16:47 06/20/17 16:47 Interpretation: Normal - General General appearance: Appears well, Alert - HEENT Head: Normocephalic, Atraumatic Eyes: Normal Pupils: PERRL - Respiratory Respiratory status: No respiratory distress Chest status: Nontender Breath sounds: Normal Chest palpation: Normal - Cardiovascular Rhythm: Regular Heart sounds: Normal auscultation Murmur: No - Abdominal Inspection: Normal Distension: No distension Bowel sounds: Normal Tenderness: Nontender Organomegaly: No organomegaly - Back Back: Normal, Nontender - Extremities General upper extremity: Normal inspection, Nontender, Normal color, Normal ROM , Normal temperature General lower extremity: Normal inspection, Nontender, Normal color, Normal ROM , Normal temperature, Normal weight bearing. No: Shai's sign - Neurological Neuro grossly intact: Yes Cognition: Normal Orientation: AAOx4 Carmen Coma Scale Eye Opening: Spontaneous [place] Coma Scale Verbal: Oriented Carmen Coma Scale Motor: Obeys Commands Carmen Coma Scale Total: 15 Speech: Normal Motor strength normal: LUE, RUE, LLE, RLE Sensory: Normal - Psychological Associated symptoms: Normal affect, Normal mood - Skin Skin Temperature: Warm Skin Moisture: Dry Skin Color: Normal Course - Re-evaluation Re-evalutation: 06/20/17 19:04 A uncomfortable appearing. Instructed patient we need to get stat head CT and may be even do an LP to rule out a subarachnoid hemorrhage. Patient did have recent CVAs that could be sequela of previous stroke. 06/20/17 21:13 CT scan unremarkable. Patient was consented for LP to rule out subarachnoid hemorrhage or infection. Awaiting labs at this time and then will proceed with LP. 06/21/17 00:05 Lumbar puncture performed. No difficulty. Fluid was clear. Patient states that his headache is a 1/10 on a numeric pain scale at this time. Is hungry. Sitting upright. Wants to eat. No obvious focal deficits other than the deficits which he had from his stroke 3 months ago. Patient's skin is warm to the touch not cool. Apparently his temperature recorded by the nurses been recorded as low. This seems very incongruent to what I am feeling just by touch and the way the patient looks. Patient is not cool. He is not diaphoretic and does not appear ill in any way.. 06/21/17 00:06 06/21/17 00:42 Patient feeling better. CSF analysis is unremarkable. Normal cell counts. Normal glucose. Protein is 61. 06/21/17 00:50 Went in to inform patient that the CSF and everything looked good. Patient states that he tried to drink some water and eat some food but is having difficulty swallowing. Have observed patient now for quite some time. Does not seem to be getting better. Denies any headache at this time. Will consult with the hospitalist for further workup at this time. 06/21/17 01:[address] Pinto. There is some concern that no neurologist is available. Repeat exam does not show any worsening neurological deficits other than this reported dysphasia. Would feel more comfortable watching patient at this time and continue with p.o. challenges. It is possible that the medications given for the headache could be affecting his swallowing. - Vital Signs Vital signs: Temp Pulse Resp BP Pulse Ox 94.5 F L 13 130/74 H 97 06/20/17 21:21 06/20/17 21:01 06/20/17 21:01 06/20/17 21:01 - Laboratory Result Diagrams: 06/20/17 17:02 06/20/17 21:35 Laboratory results interpreted by me: 06/20/17 06/20/17 06/20/17 17:02 21:35 23:20 WBC 13.8 H MCV 99 H MCH 34.4 H Seg Neutrophils % 30.6 L Lymphocytes % 50.0 H Monocytes % 13.6 H Absolute Lymphocytes 6.9 H Absolute Monocytes 1.9 H Absolute Eosinophils 0.7 H Chloride 108 H Glucose 117 H ALT 79 H CSF Total Protein 61 H - EKG Interpretation by [place] EKG shows normal: Sinus rhythm, [place], Intervals, QRS Complexes, ST-T Waves - Patient with frequent PVCs Procedures - Lumbar Puncture Lumbar puncture Time completed: 23:23 Consent obtained: Yes Lumbar puncture pre-procedure: Sterile PPE donned, Betadine prep applied, Chloraprep applied, Sterile drapes applied Patient position: Sitting Needle size: 21 Lumbar puncture location: L4 Anesthetic type: 1% Lidocaine mL's of anesthetic: 3 Amount/type of drainage: 6 ml clear fluid Number of attempts: 1 Complications: No Discharge - Discharge Clinical Impression: Dysphasia Head ache Qualifiers: Headache type: unspecified Headache chronicity pattern: acute headache Intractability: not intractable Qualified Code(s): R51 - Headache Disposition: ADMITTED OBSERVATION [facility] Unit Admitted: Medical Floor Instructions: Intravenous Compazine for Headaches ([facility]), Use of Diphenhydramine , Headache ([facility]), Toradol Injection ([facility]) Additional Instructions: Headache The physician does not feel that the headache you are experiencing has a serious underlying cause. Most headaches are due to emotional stress, with resultant muscle tension (tension headache). Occasionally, headaches are secondary to changes in the blood vessels of the scalp (vascular headache and migraine headache). Sometimes, a headache is the first symptom of another developing illness, such as a viral infection. You have no evidence of stroke, bleeding, meningitis, or other serious cause of your headache. The treatment of headaches varies with the severity and cause of the pain. Not all headaches need pain shots. In fact, there is evidence that using narcotics for headaches may make them worse in the long run. The physician will determine the therapy that's in your best interest. If you develop a fever, if the headache is different from any you've previously experienced, or if the headache progressively worsens, then call your physician at once or go to the emergency room.You have been seen for a headache today. The cause is still unknown.. It will be very important that you follow-up with a neurologist. This could be some of the aftereffects from your recent previous stroke. In the event that your headache is getting worse, he began to have intractable vomiting, increasing weakness of your upper lower extremities, loss of consciousness or change in mental status please get to the nearest treatment facility for further evaluation. Referrals: LANCE BAEZ MD [NO LOCAL MD] - Follow up in 1 week
[2017-06-20] MEDS ORDERED: DIPHENHYDRAMINE HCL 50 MG/ML VIAL IV ONE (18:40)
[2017-06-20] MEDS ORDERED: PROCHLORPERAZINE EDISYLATE INJ 10 MG/2 ML VIAL IV ONE (18:40)
--- NOTE | 2017-06-20 20:19 | RADIOLOGY REPORT (SQ) ---
EXAM DESCRIPTION: CT HEAD WITHOUT COMPLETED DATE/TIME: 06/20/2017 7:43 pm REASON FOR STUDY: headache with confusion COMPARISON: 03/28/2017 TECHNIQUE: Axial images acquired through the brain without intravenous contrast. Images reviewed wi th bone, brain and subdural windows. Images stored on PACS. All CT scanners at this facility use dose modulation, iterative reconstruction, and/or weight based d osing when appropriate to reduce radiation dose to as low as reasonably achievable (ALARA). [facility]: Dose Right [facility]: CareDose [facility]: Dose Right [facility]: Teradose 4D [facility]: Smart [employer] RADIATION DOSE: CT Rad equipment meets quality standard of care and radiation dose reduction techniq ues were employed. CTDIvol: 64.6 mGy. DLP: 1163 mGy-cm.mGy. LIMITATIONS: None. FINDINGS: VENTRICLES: Prominent. CEREBRUM: No masses. No hemorrhage. No midline shift. Areas of low density in the white matter mos t likely due to chronic micro-vascular ischemic change. No evidence for acute infarction. CEREBELLUM: No masses. No hemorrhage. No alteration of density. No evidence for acute infarction. EXTRAAXIAL SPACES: Age-related involutional change. No fluid collections. No masses. ORBITS AND GLOBE: No intra- or extraconal masses. Normal contour of globe without masses. CALVARIUM: No fracture. PARANASAL SINUSES: No fluid or mucosal thickening. SOFT TISSUES: No mass or hematoma. OTHER: No other significant finding. IMPRESSION: CHRONIC CHANGES OF ATROPHY AND MICROVASCULAR ISCHEMIA. NO ACUTE PROCESS. EVIDENCE OF ACUTE STROKE: NO. TECHNICAL DOCUMENTATION: JOB ID: [id number] [place]-72 Quality ID # [id number]: Final reports with documentation of one or more dose reduction techniques (e.g., Au tomated exposure control, adjustment of the mA and/or kV according to patient size, use of iterative reconstruction technique) 2010 [employer]- All Rights Reserved
[2017-06-20] MEDS ORDERED: LIDOCAINE 1% INJ-PF (10 MG/ML) 30 ML SDV INJ ONE (21:15)
[2017-06-20 21:40] LABS: A TYPE INFLUENZA AG NEGATIVE (NEGATIVE); B INFLUENZA AG NEGATIVE (NEGATIVE)
[2017-06-20 22:04] LABS: BLOOD UREA NITROGEN 18 mg/dL (7-20); CALCIUM 9.7 mg/dL (8.4-10.2); GLUCOSE 117 mg/dL (75-110)
[2017-06-20 22:05] LABS: ALANINE AMINOTRANSFERASE 79 U/L (21-72); ALBUMIN 4.4 g/dL (3.5-5.0); ALKALINE PHOSPHATASE 123 U/L (38-126); ANION GAP 12 (5-19); ASPARTATE AMINO TRANSFERASE 49 U/L (17-59); BILIRUBIN,DIRECT 0.2 mg/dL (0.0-0.4); BILIRUBIN,TOTAL 0.8 mg/dL (0.2-1.3); CARBON DIOXIDE 22 mmol/L (22-30); CHLORIDE 108 mmol/L (98-107); CREATINE KINASE 89 U/L (55-170); SODIUM 141.7 mmol/L (137-145); TOTAL PROTEIN 7.5 g/dL (6.3-8.2)
[2017-06-20 22:16] LABS: CREATINE KINASE MB 1.21 ng/mL (<4.55); TROPONIN I 0.016 ng/mL
[2017-06-20 22:45] LABS: INTERNATIONAL RATION (INR) 0.96; PROTHROMBIN TIME 13.5 SEC (11.4-15.4)
[2017-06-20 22:46] LABS: PARTIAL THROMBOPLASTIN TIME 31.4 SEC (23.5-35.8)
[2017-06-20] MEDS ORDERED: KETOROLAC TROMETHAMINE INJ/PF 30 MG/1 ML SDV IV ONE (23:23)
[2017-06-21 00:36] LABS: APPEARANCE TUBE 1 CLEAR; COLOR ALL TUBES COLORLESS; COLOR TUBE 1 COLORLESS; COLOR TUBE 2 COLORLESS; COLOR TUBE 3 COLORLESS; COLOR TUBE 4 COLORLESS; CSF TUBE NUMBER 1
[2017-06-21 00:37] LABS: APPEARANCE ALL TUBES CLEAR; APPEARANCE TUBE 2 CLEAR; APPEARANCE TUBE 3 CLEAR; APPEARANCE TUBE 4 CLEAR; CSF TOTAL VOLUME 8.1 CC; GLUCOSE,CSF 61 mg/dL (40-70); PROTEIN,CSF 61 mg/dL (12-60); VOLUME TUBE 2 2.3 CC; VOLUME TUBE 3 1.5 CC; VOLUME TUBE 4 2.3 CC
[2017-06-21 00:38] LABS: RED BLOOD CELL,CSF 8 /uL (0-10); WHITE BLOOD CELL,CSF 2 /uL (0-5)
[2017-06-21 00:39] LABS: APPEARANCE ALL TUBES CLEAR; APPEARANCE TUBE 1 CLEAR; APPEARANCE TUBE 2 CLEAR; APPEARANCE TUBE 3 CLEAR; APPEARANCE TUBE 4 CLEAR; COLOR ALL TUBES COLORLESS; COLOR TUBE 1 COLORLESS; COLOR TUBE 2 COLORLESS; COLOR TUBE 3 COLORLESS; COLOR TUBE 4 COLORLESS; CSF TOTAL VOLUME 8.1 CC; CSF TUBE NUMBER 4; RED BLOOD CELL,CSF 0 /uL (0-10); VOLUME TUBE 2 2.3 CC; VOLUME TUBE 3 1.5 CC; VOLUME TUBE 4 2.3 CC
[2017-06-21 00:40] LABS: WHITE BLOOD CELL,CSF 0 /uL (0-5)
[2017-06-21] MEDS ORDERED: ASPIRIN 81 MG TABLET, CHEWABLE PO ONE (00:50)
[2017-06-21] MEDS ORDERED: GLUCAGON,HUMAN RECOMB 1 MG INJ SUBCUT PRN (05:09)
[2017-06-21] MEDS ORDERED: ACETAMINOPHEN 650 MG SUPP.RECT PR PRN (05:09)
[2017-06-21] MEDS ORDERED: DEXTROSE 40% GEL 15 GM TUBE PO PRN ×2 (05:09)
[2017-06-21] MEDS ORDERED: DEXTROSE 50%-WATER 25 GM/50 ML DISP.SYRIN IV PRN ×2 (05:09)
[2017-06-21] MEDS ORDERED: ENALAPRILAT DIHYDRATE INJ/PF 1.25 MG/1 ML SDV IV PRN (05:14)
--- NOTE | 2017-06-21 07:38 | EKG REPORT ---
SEVERITY:- ABNORMAL ECG - SINUS RHYTHM MULTIFORM VENTRICULAR PREMATURE COMPLEXES BORDERLINE PROLONGED QT INTERVAL : Confirmed by: Jenna Byrd MD 21-Jun-2017 07:37:43
[2017-06-21 08:18] LABS: APPEARANCE,URINE CLEAR; BILIRUBIN,URINE NEGATIVE (NEGATIVE); COLOR,URINE YELLOW; GLUCOSE, URINE NEGATIVE (NEGATIVE); KETONES,URINE NEGATIVE (NEGATIVE); LEUKOCYTE ESTERASE,URINE NEGATIVE (NEGATIVE); NITRITE,URINE NEGATIVE (NEGATIVE); PROTEIN,URINE NEGATIVE (NEGATIVE); URINE SPECIFIC GRAVITY 1.016
--- NOTE | 2017-06-21 09:39 | ST Inp Modified Barium Swallow ---
Medical Diagnosis - Medical Diagnoses Medical Diagnosis Description & ICD-10 Code(s): Headache ST Inpatient [facility] [place] - General Date: 06/21/17 Date of Onset: 06/20/17 - History History Obtained From: Patient, Family -: Medical Medications: Medications Reviewed Allergies: Refer to medical record - Subjective Current Nutritional Means: NPO Current Symptoms: Coughing, Wet/gurgly voice, gagging - Objective Assessment: Upright, Left Lateral - Food Trials Food Trials Used: [place] thick liquids - Administered only one, small cup sip of nectar as patient had little to no opening of the upper esophageal sphincter causing significant pooling in the pyriform sinuses and high risk of aspiration , Other - Regular water to help clear residue from nectar thick liquids. Patient gagged and spit some of the residue back up. Only a minimal amount passed through the upper esophageal sphincter. Despite multipe swallows and coughs, patient did not clear all residue. The Patient: Was Able to Self Feed - Assessment Labial Function: Within Normal Limits Lingual Function: Impaired - discoordinated motion, but functional Velo-Pharyngeal Function: Active gag Laryngeal Function: Volitional Cough, Volitional Swallow - Pharyngeal Stage Initiation of Pharyngeal Stage: Normal Decreased Laryngeal Elevation: No Reduced Velo-Pharyngeal Closure: no Reduced Pressure Generation: Yes Reduced Tongue Base Retraction: No Pre-Swallowing Pooling in Valleculae: None Pre-Swallowing Pooling in Pyriforms: None Reduced Thyro-Hyiod Approximation: No Reduced Epiglottic Excursion: No Multiple Swallows With: Ineffective Clearance - Ineffective to clear residue from pyriform sinuses as upper esophageal sphincter did not open. Patiet did gag and spit up some residual. Post Swallow Residuals in Valleculae: Significant - cleared when patient gagged and spit out some residuals Post Swallow Residuals in Pyriforms: Significant Pahryngeal Stage Comments: appears functional, however as upper esophageal sphincter had little to no opening, caused significant pooling and severe risk for aspiration - Esophageal Stage Upper Esophageal Transit: Impaired - minimal to no opening of the upper esophageal sphincter noted causing significant pooling and extreme risk for aspiration Cervical Osteophytes Noted: No - Impression/Summary Laryngeal Penetration: No - Penetration/aspiration not seen underfluroscopy, however patient was administered plain water to help clear residue of nectar thick liquid and had gurgly vocal quality. Cleared with cued cough. Tracheal Aspiration: no Patient Presents With: Esophageal stage dysph. - minimal to no opening of upper esophageal sphincter opening although patient with adequate hyolaryngeal excursion Risk of Aspiration: Severe - Recommendations NPO: yes Dysphagia Therapy with [employer]LTER SUPERVISOR: Follow Up PRN - Recommend GI consult first. Speech may follow up if needed after GI Other Recommendations: Recommend GI consult as the upper esophageal sphincter had minimal to no opening causing significant pooling in the pyriform sinuses and high risk of aspiration - Time Total Time: 30 Total Timed Minutes: 30
[2017-06-21] MEDS: RINGERS SOLUTION,LACTATED 1,000 ML IV PRN (10:21)
[2017-06-21] MEDS: FAMOTIDINE INJ/PF 20 MG/2 ML SDV IV SCH ×2 (10:24→21:50)
--- NOTE | 2017-06-21 12:29 | RADIOLOGY REPORT (SQ) ---
EXAM DESCRIPTION: ROCKYIE SWALLOW COMPLETED DATE/TIME: 06/21/2017 9:02 am REASON FOR STUDY: dysphagia, following CVA I 69.391 COMPARISON: None. TECHNIQUE: Videofluoroscopic swallowing examination was performed in conjunction with speech patholo gy. Videofluoroscopic imaging was obtained and reviewed and these are the findings: RADIATION DOSE: Total fluoroscopy time: 1 minutes 47 seconds 2 fluoroscopy images saved to PACS. LIMITATIONS: Limited views of the swallowing function were obtained due a large amount of post swall ow residual and difficulty passing bolus into the esophagus. FINDINGS: The patient was brought into the fluoro room and placed upright on a modified barium swall ow chair. The patient was then given thin liquid mixed with barium to swallow under live fluoroscopi c video guidance. According to the Speech Pathologist there was laryngeal penetration seen with post swallow residuals. No definite tracheal aspiration seen however the study was significantly limited only to sips of thin liquid more evaluated. There was significant amount of post swallow residual a nd difficulty passing liquid bolus into the esophagus for unknown etiology. GI consult and upper end oscopy may be helpful for direct visualization. Please see speech pathology report for further detai ls and recommendations. IMPRESSION: 1. LIMITED EVALUATION OF SWALLOWING FUNCTION SHOWED LARYNGEAL PENETRATION OF POST SWALL OW RESIDUALS AND NO DEFINITE TRACHEAL ASPIRATION. 2. VERY WEAK SWALLOWING MECHANISM WITH SIGNIFICANT AMOUNT OF POST SWALLOW RESIDUAL SEEN WITHIN THE P IRIFORMS, INABILITY TO PASS LIQUID BOLUS INTO THE ESOPHAGUS EFFECTIVELY. THE ETIOLOGY OF THIS IS UNK NOWN. GI CONSULT AND UPPER ENDOSCOPY MAY BE HELPFUL FOR DIRECT VISUALIZATION. 3. PLEASE SEE SPEECH PATHOLOGIST REPORT FOR OTHER FINDINGS AND RECOMMENDATIONS. COMMENT: Quality ID [id number]: Final reports for procedures using fluoroscopy that document radiation exp osure indices, or exposure time and number of fluorographic images (if radiation exposure indices are not available) TECHNICAL DOCUMENTATION: JOB ID: [id number] [employer]- All Rights Reserved
[2017-06-21] MEDS ORDERED: METHOCARBAMOL INJ/PF 1000 MG/10 ML SDV IV ONE (17:07)
[2017-06-21] MEDS ORDERED: HYDRALAZINE HCL INJ/PF 20 MG/1 ML SDV IV PRN (17:08)
[2017-06-21] MEDS ORDERED: FENTANYL 12 MCG/HR PATCH.TD72 TD ONE ×2 (18:00→22:00)
[2017-06-21] MEDS ORDERED: METHOCARBAMOL 500 MG in DEXTROSE 5%-WATER 50 ML IV ONE (18:00)
[2017-06-21] MEDS ORDERED: LIDOCAINE 1% INJ-PF (10 MG/ML) 30 ML SDV ONE (20:37)
--- NOTE | 2017-06-21 21:43 | RADIOLOGY REPORT (SQ) ---
EXAM DESCRIPTION: CHEST SINGLE VIEW COMPLETED DATE/TIME: 06/21/2017 9:18 pm REASON FOR STUDY: CENTRAL LINE PLACEMENT COMPARISON: 03/28/2017 EXAM PARAMETERS: NUMBER OF VIEWS: One view. TECHNIQUE: Single frontal radiographic view of the chest acquired. RADIATION DOSE: NA LIMITATIONS: None. FINDINGS: LUNGS AND PLEURA: No acute similar subsegmental atelectasis in the left lung base. Opacit ies, masses or pneumothorax. No pleural effusion. MEDIASTINUM AND HILAR STRUCTURES: No masses. Contour normal. HEART AND VASCULAR STRUCTURES: Heart normal in size. Normal vasculature. BONES: No acute findings. HARDWARE: Right subclavian central venous catheter tip is projected superiorly with tip overlying the right IJ. OTHER: No other significant finding. IMPRESSION: Right subclavian central venous catheter tip is projected superiorly with tip overlying the right IJ. No pneumothorax. TECHNICAL DOCUMENTATION: JOB ID: [id number] [place]-72 2010 [employer]- All Rights Reserved
[2017-06-21] MEDS ORDERED: NORMAL SALINE 500 ML with CHLORPROMAZINE HCL 25 MG IM ONE ×2 (22:00)
[2017-06-21] MEDS: NORMAL SALINE INJ/PF 0.9% 10 ML SDV IV PRN (22:03)
[2017-06-21] MEDS ORDERED: LIDOCAINE 1% INJ-PF (10 MG/ML) 30 ML SDV INJ ONE (22:15)
--- NOTE | 2017-06-21 23:04 | Progress Note ---
Provider Note Provider Note: Patient may have had a stroke. He mentioned slurred speech and change in vision prior to presenting to the ED. Patient CT was negative. However patient is acutely dysphasic despite not having any other deficits. Modified barium swallow show oropharyngeal dysphagia. Patient is NPO. Central line was placed. Patient is currently on IV fluids. [facility] has agreed to take patient's to their stroke unit. They suggested that the MRI be completed there. Patient did have an LP there for patient is on SCD for DVT prophylaxis. Will check lipid panel and A1c in the am. Dr. Mitchell Zaidi is the accepting physician.
[2017-06-22] MEDS: NORMAL SALINE INJ/PF 0.9% 10 ML SDV IV PRN ×2 (00:20→14:04)
--- NOTE | 2017-06-22 07:52 | PDOC H&P ---
History of Present Illness Admission Date/PCP: 06/21/17 01:50 Patient complains of: Inability to swallow History of Present Illness: CHRIS AGUDELO is a 77 year old male who had a stroke several months ago. He now presents to the emergency room with severe headache. The emergency room physician felt that this was suspicious for sentinel headache. LP was done after CAT scanning. There was no xanthochromia. Patient was getting ready for discharge when he complained of dysphagia to solids and liquids that had just started while he was in the emergency room. He was then referred to us for ongoing management Past Medical History Cardiac Medical History: Reports: Coronary Artery Disease, Hypertension Past Surgical History Past Surgical History: Reports: Other - Pneumonectomy Social History Lives with: Alone, Family Smoking Status: Never Smoker Frequency of Alcohol Use: None Hx Recreational Drug Use: No Hx Prescription Drug Abuse: No - Advance Directive Resuscitation Status: Full Code Family History Family History: CAD, Malignancy Parental Family History Reviewed: Yes Children Family History Reviewed: Yes Sibling(s) Family History Reviewed.: Yes Medication/Allergy Home Medications: Amlodipine Besylate [Norvasc 10 mg Tablet] 5 mg PO DAILY 06/21/17 Ascorbic Acid [Vitamin C] 1,000 mg PO DAILY 06/21/17 Aspirin [Aspirin 325 mg Tablet] 325 mg PO DAILY 06/21/17 Atorvastatin Calcium [Lipitor 80 mg Tablet] 80 mg PO QHS 06/21/17 B1/B2/Niacin/B12/Protease [B-Complex with B-12 Tablet] 1 tab PO DAILY 06/21/17 Cholecalciferol (Vitamin D3) [Vitamin D3] 2,000 unit PO DAILY 06/21/17 Clopidogrel Bisulfate [Clopidogrel] 75 mg PO DAILY 06/21/17 Esomeprazole Mag Trihydrate [Nexium] 40 mg PO DAILY 06/21/17 Multivitamin [Multiple Vitamins] 1 tab PO DAILY 06/21/17 Pregabalin [Lyrica] 150 mg PO DAILY 06/21/17 Simvastatin 10 mg PO QHS 06/21/17 Allergies/Adverse Reactions: ceftriaxone [From Rocephin] Allergy (Verified 03/28/17 09:54) Review of Systems Constitutional: ABSENT: chills, fever(s), headache(s), weight gain, weight loss Eyes: ABSENT: visual disturbances Ears: ABSENT: hearing changes Cardiovascular: ABSENT: chest pain, dyspnea on exertion, edema, orthropnea, palpitations Respiratory: ABSENT: cough, hemoptysis Gastrointestinal: ABSENT: abdominal pain, constipation, diarrhea, hematemesis, hematochezia, nausea, vomiting Genitourinary: ABSENT: dysuria, hematuria Musculoskeletal: ABSENT: joint swelling Integumentary: ABSENT: rash, wounds Neurological: ABSENT: abnormal gait, abnormal speech, confusion, dizziness, focal weakness, syncope Psychiatric: ABSENT: anxiety, depression, homidical ideation, suicidal ideation Endocrine: ABSENT: cold intolerance, heat intolerance, polydipsia, polyuria Hematologic/Lymphatic: ABSENT: easy bleeding, easy bruising Physical Exam Vital Signs: Temp Pulse Resp BP Pulse Ox 97.7 F 78 18 145/69 H 92 06/22/17 05:22 06/22/17 05:22 06/22/17 01:53 06/22/17 05:22 06/22/17 05:22 Intake & Output 06/21/17 06/22/17 06/23/17 06:59 06:59 06:59 Intake Total 2030 0 Output Total 480 0 Balance 1550 0 Weight 95.3 kg General appearance: PRESENT: no acute distress, well-developed, well-nourished Head exam: PRESENT: atraumatic, normocephalic Eye exam: PRESENT: conjunctiva pink, EOMI, PERRLA. ABSENT: scleral icterus Ear exam: PRESENT: normal external ear exam Neck exam: ABSENT: carotid bruit, JVD, lymphadenopathy, thyromegaly Respiratory exam: PRESENT: clear to auscultation khoa. ABSENT: rales, rhonchi, wheezes Cardiovascular exam: PRESENT: RRR. ABSENT: diastolic murmur, rubs, systolic murmur GI/Abdominal exam: PRESENT: normal bowel sounds, soft. ABSENT: distended, guarding, mass, organolmegaly, rebound, tenderness Rectal exam: PRESENT: deferred Extremities exam: PRESENT: full ROM. ABSENT: calf tenderness, clubbing, pedal edema Neurological exam: PRESENT: alert, awake, oriented to person, oriented to place , oriented to time, oriented to situation, CN II-XII grossly intact. ABSENT: motor sensory deficit Psychiatric exam: PRESENT: appropriate affect, normal mood. ABSENT: homicidal ideation, suicidal ideation Skin exam: PRESENT: dry, intact, warm. ABSENT: cyanosis, rash Results Laboratory Results: 06/21/17 08:00 Urine Color YELLOW Urine Appearance CLEAR Urine pH 6.0 Ur Specific [place] 1.016 Urine Protein NEGATIVE Urine Glucose (UA) NEGATIVE Urine Ketones NEGATIVE Urine Blood NEGATIVE Urine Nitrite NEGATIVE Ur Leukocyte Esterase NEGATIVE Urine WBC (Auto) 1 Urine RBC (Auto) 6 Impressions: Head CT 06/20/17 18:39 IMPRESSION: CHRONIC CHANGES OF ATROPHY AND MICROVASCULAR ISCHEMIA. NO ACUTE PROCESS. EVIDENCE OF ACUTE STROKE: NO. Chest X-Ray 06/21/17 00:00 IMPRESSION: Right subclavian central venous catheter tip is projected superiorly with tip overlying the right IJ. No pneumothorax. Modified Barium Swallow 06/21/17 00:00 IMPRESSION: 1. LIMITED EVALUATION OF SWALLOWING FUNCTION SHOWED LARYNGEAL PENETRATION OF POST SWALLOW RESIDUALS AND NO DEFINITE TRACHEAL ASPIRATION. 2. VERY WEAK SWALLOWING MECHANISM WITH SIGNIFICANT AMOUNT OF POST SWALLOW RESIDUAL SEEN WITHIN THE PIRIFORMS, INABILITY TO PASS LIQUID BOLUS INTO THE ESOPHAGUS EFFECTIVELY. THE ETIOLOGY OF THIS IS UNKNOWN. GI CONSULT AND UPPER ENDOSCOPY MAY BE HELPFUL FOR DIRECT VISUALIZATION. 3. PLEASE SEE SPEECH PATHOLOGIST REPORT FOR OTHER FINDINGS AND RECOMMENDATIONS. Assessment & Plan - Diagnosis (1) Dysphagia as late effect of cerebrovascular accident (CVA) Is this a current diagnosis for this admission?: Yes (2) Head ache Qualifiers: Headache type: unspecified Headache chronicity pattern: acute headache Intractability: not intractable Qualified Code(s): R51 - Headache Is this a current diagnosis for this admission?: Yes (3) Essential hypertension Is this a current diagnosis for this admission?: Yes - Time Time Spent: 30 to 50 Minutes - Plan Summary Plan Summary: Patient has developed sudden onset of dysphagia. It is unclear if this is medication related. We will ask speech therapy to evaluate him and schedule him for a barium swallow. At this point in time he will be placed in observation.
[2017-06-22] MEDS: FAMOTIDINE INJ/PF 20 MG/2 ML SDV IV SCH (08:39)
--- NOTE | 2017-06-22 08:59 | PDOC TRANSFER SUMMARY ---
General Admission Date/PCP: 06/21/17 01:50 Resuscitation Status: Full Code - Transfer Diagnosis (1) Dysphagia as late effect of cerebrovascular accident (CVA) Is this a current diagnosis for this admission?: Yes (2) Head ache Is this a current diagnosis for this admission?: Yes (4) Essential hypertension Is this a current diagnosis for this admission?: Yes - Transfer Medications Home Medications: Amlodipine Besylate [Norvasc 10 mg Tablet] 5 mg PO DAILY 06/21/17 Ascorbic Acid [Vitamin C] 1,000 mg PO DAILY 06/21/17 Aspirin [Aspirin 325 mg Tablet] 325 mg PO DAILY 06/21/17 Atorvastatin Calcium [Lipitor 80 mg Tablet] 80 mg PO QHS 06/21/17 B1/B2/Niacin/B12/Protease [B-Complex with B-12 Tablet] 1 tab PO DAILY 06/21/17 Cholecalciferol (Vitamin D3) [Vitamin D3] 2,000 unit PO DAILY 06/21/17 Clopidogrel Bisulfate [Clopidogrel] 75 mg PO DAILY 06/21/17 Esomeprazole Mag Trihydrate [Nexium] 40 mg PO DAILY 06/21/17 Multivitamin [Multiple Vitamins] 1 tab PO DAILY 06/21/17 Pregabalin [Lyrica] 150 mg PO DAILY 06/21/17 Simvastatin 10 mg PO QHS 06/21/17 Transfer Medications: Current Medications Acetaminophen (Tylenol 650 Mg Supp) 650 mg DC Q4HP PRN Stop: 07/21/17 05:08 Dextrose (Dextrose Inj 50% Syringe (25 Gm/50 Ml)) 12.5 gm IV PRN PRN; Protocol PRN Reason: FOR BG 50-69 IN ALERT PATIENT Stop: 07/21/17 05:08 Dextrose (Dextrose Inj 50% Syringe (25 Gm/50 Ml)) 25 gm IV PRN PRN; Protocol PRN Reason: See Label Comments Stop: 07/21/17 05:08 Famotidine (Pepcid Inj/Pf 20 Mg/2 Ml Sdv) 20 mg IV Q12 GERDA Stop: 07/21/17 09:59 Last Admin: 06/21/17 21:50 Dose: 20 mg Glucagon (Glucagen Inj 1 Mg Vial) 1 mg SUBCUT PRN PRN; Protocol PRN Reason: Evaluate for BG < 70 Stop: 07/21/17 05:08 Glucose (Glutose 40% Gel 15 Gm Tube) 15 gm PO PRN PRN; Protocol PRN Reason: For BG 50-69 in Alert Patient Stop: 07/21/17 05:08 Glucose (Glutose 40% Gel 15 Gm Tube) 30 gm PO PRN PRN; Protocol PRN Reason: FOR BG < 50 IN ALERT PATIENT Stop: 07/21/17 05:08 Heparin Sodium (Porcine) (Heparin Flush 10 Unit/Ml 5 Ml Disp.Syrg) 30 unit IV Q8 [facility] Stop: 07/21/17 21:59 Last Admin: 06/22/17 05:13 Dose: Not Given Heparin Sodium (Porcine) (Heparin Flush 10 Unit/Ml 5 Ml Disp.Syrg) 30 unit IV .AFTER EACH USE PRN PRN Reason: AFTER EACH INTERMITTENT USE Stop: 07/21/17 21:28 Last Admin: 06/22/17 00:20 Dose: 30 unit Hydralazine HCl (Apresoline Inj/Pf 20 Mg/1 Ml Sdv) 10 mg IV Q3HP PRN PRN Reason: SBP>150 Stop: 07/21/17 17:07 Lactated Ringer's (Lactated Ringers 1000 Ml Iv Soln) 1,000 mls @ 100 mls/hr IV CONTINUOUS PRN PRN Reason: THIS MED IS NOT "PRN" Stop: 07/21/17 05:08 Last Admin: 06/21/17 10:21 Dose: 1,000 ml Morphine Sulfate (Morphine 10 Mg/Ml Inj) 1 mg IV Q4HP PRN Stop: 06/28/17 17:07 Ondansetron HCl (Zofran Inj/Pf 4 Mg/2 Ml Sdv) 4 mg IV Q4HP PRN PRN Reason: FOR NAUSEA/VOMITING Stop: 07/21/17 05:08 Sodium Chloride (Saline Flush 2.5 Ml Monoject Prefil Syrin) 2.5 ml IV Q8 [facility] Stop: 07/21/17 05:59 Last Admin: 06/22/17 05:13 Dose: Not Given Sodium Chloride (Nacl 0.9% Inj/Pf 10 Ml Sdv) 10 ml IV .AFTER EACH USE PRN PRN Reason: AFTER EACH INTERMITTENT USE Stop: 07/21/17 21:28 Last Admin: 06/22/17 00:20 Dose: 10 ml - Allergies Allergies/Adverse Reactions: ceftriaxone [From Rocephin] Allergy (Verified 03/28/17 09:54) Hospital Course Hospital Course: Patient is a cyst 77-year-old right-handed male with a history of coronary artery disease, hypertension, dyslipidemia and chronic pain who states that at home he had slurred speech change in vision and a severe headache on the right side. By the time the EMS came to see him slurred speech and the visual changes had resolved. Patient continues to have a headache. Patient presented to the ED CT scan the head was done which showed chronic changes of atrophy and microvascular ischemia. There was no acute process. They went on to do lumbar puncture and my which was also negative. Patient headache did subside some. However when patient was given a sublingual Zofran to take he noticed he could not swallow. The ED initially believed that this was secondary to something given for pain. However the symptoms persisted. Patient had a modified barium swallow completed on 06/21/2016 which showed limited evaluation of swallowing function showed laryngeal penetration of post swallow residuals and no definite tracheal aspiration. Very weak swallowing mechanism with significant amount of post swallow residual seen within the piriforms, inability to pass liquid bolus into the esophagus effectively. At that point patient remained n.p.o. being that there is no obvious obstruction unlikely that this is stroke related. Unfortunately patient has had another stroke despite being on high-dose aspirin Plavix and statin. Being that we do not have neurology to further evaluate the patient it was thought best that he be transferred to a tertiary center with neurology. [facility] was contacted and the case was discussed with Dr. Zaidi. He advised me not to do any further imaging as [facility] would not be able to access those imaging and that the workup could easily be completed there. He agreed that the patient would benefit from further evaluation by neurology and should be transferred to their stroke unit in the morning. Physical Exam Vital Signs: Temp Pulse Resp BP Pulse Ox 97.8 F 68 18 157/70 H 91 L 06/22/17 07:08 06/22/17 07:08 06/22/17 07:08 06/22/17 07:08 06/22/17 07:08 Intake & Output 06/21/17 06/22/17 06/23/17 06:59 06:59 06:59 Intake Total 2030 0 Output Total 480 0 Balance 1550 0 Weight 95.3 kg General appearance: PRESENT: no acute distress, well-developed, well-nourished Head exam: PRESENT: normocephalic Eye exam: ABSENT: scleral icterus Ear exam: PRESENT: normal external ear exam Mouth exam: PRESENT: moist Neck exam: ABSENT: carotid bruit, JVD, lymphadenopathy, thyromegaly Respiratory exam: PRESENT: clear to auscultation khoa. ABSENT: rales, rhonchi, wheezes Cardiovascular exam: PRESENT: RRR. ABSENT: diastolic murmur, rubs, systolic murmur GI/Abdominal exam: PRESENT: normal bowel sounds, soft. ABSENT: distended, guarding, mass, organolmegaly, rebound, tenderness Rectal exam: PRESENT: deferred Extremities exam: PRESENT: full ROM. ABSENT: calf tenderness, clubbing, pedal edema Neurological exam: PRESENT: alert, awake, oriented to person, oriented to place , oriented to time, oriented to situation, CN II-XII grossly intact, other - Dysphagia. ABSENT: motor sensory deficit Psychiatric exam: PRESENT: appropriate affect, normal mood. ABSENT: homicidal ideation, suicidal ideation Skin exam: PRESENT: dry, intact, warm. ABSENT: cyanosis, rash Results Laboratory Results: 06/20/17 06/20/17 06/20/17 17:02 21:25 21:35 WBC 13.8 H RBC 4.48 Hgb 15.4 Hct 44.3 MCV 99 H MCH 34.4 H MCHC 34.8 RDW 13.4 Plt Count 281 Seg Neutrophils % 30.6 L Lymphocytes % 50.0 H Monocytes % 13.6 H Eosinophils % 4.8 Basophils % 1.0 Absolute Neutrophils 4.2 Absolute Lymphocytes 6.9 H Absolute Monocytes 1.9 H Absolute Eosinophils 0.7 H Absolute Basophils 0.1 PT 13.5 INR 0.96 APTT 31.4 Sodium 141.7 Potassium 4.0 Chloride 108 H Carbon Dioxide 22 Anion Gap 12 BUN 18 Creatinine 0.87 Est GFR ( Amer) > 60 Est GFR (Non-Af Amer) > 60 Glucose 117 H Calcium 9.7 Total Bilirubin 0.8 Direct Bilirubin 0.2 AST 49 ALT 79 H Alkaline Phosphatase 123 Creatine Kinase 89 CK-MB (CK-2) Troponin I Total Protein 7.5 Albumin 4.4 06/20/17 21:35 WBC RBC Hgb Hct MCV MCH MCHC RDW Plt Count Seg Neutrophils % Lymphocytes % Monocytes % Eosinophils % Basophils % Absolute Neutrophils Absolute Lymphocytes Absolute Monocytes Absolute Eosinophils Absolute Basophils PT INR APTT Sodium Potassium Chloride Carbon Dioxide Anion Gap BUN Creatinine Est GFR ( Amer) Est GFR (Non-Af Amer) Glucose Calcium Total Bilirubin Direct Bilirubin AST ALT Alkaline Phosphatase Creatine Kinase CK-MB (CK-2) 1.21 Troponin I 0.016 Total Protein Albumin Impressions: Head CT 06/20/17 18:39 IMPRESSION: CHRONIC CHANGES OF ATROPHY AND MICROVASCULAR ISCHEMIA. NO ACUTE PROCESS. EVIDENCE OF ACUTE STROKE: NO. Chest X-Ray 06/21/17 00:00 IMPRESSION: Right subclavian central venous catheter tip is projected superiorly with tip overlying the right IJ. No pneumothorax. Modified Barium Swallow 06/21/17 00:00 IMPRESSION: 1. LIMITED EVALUATION OF SWALLOWING FUNCTION SHOWED LARYNGEAL PENETRATION OF POST SWALLOW RESIDUALS AND NO DEFINITE TRACHEAL ASPIRATION. 2. VERY WEAK SWALLOWING MECHANISM WITH SIGNIFICANT AMOUNT OF POST SWALLOW RESIDUAL SEEN WITHIN THE PIRIFORMS, INABILITY TO PASS LIQUID BOLUS INTO THE ESOPHAGUS EFFECTIVELY. THE ETIOLOGY OF THIS IS UNKNOWN. GI CONSULT AND UPPER ENDOSCOPY MAY BE HELPFUL FOR DIRECT VISUALIZATION. 3. PLEASE SEE SPEECH PATHOLOGIST REPORT FOR OTHER FINDINGS AND RECOMMENDATIONS. Plan Discharge Plan: Patient is being transferred to [facility] where he can be evaluated by neurology. Time Spent: Greater than 30 Minutes
[2017-06-22] MEDS: MORPHINE SULFATE 10 MG/ML INJ IV PRN ×2 (10:50→17:54)
[2017-06-22] MEDS: ONDANSETRON HCL INJ/PF 4 MG/2 ML SDV IV PRN ×2 (10:56→17:55)
[2017-06-22] MEDS: RINGERS SOLUTION,LACTATED 1,000 ML IV PRN (14:03)
[2017-06-22 14:13] LABS: TRIGLYCERIDES 78 mg/dL (<150)
[2017-06-22 14:28] LABS: DIRECT LDL 84 mg/dL (<100)
--- NOTE | 2017-06-22 17:46 | OPERATIVE REPORT E ---
Operative Report NAME: CHRIS AGUDELO : 1940 AGE: 77Y DATE OF SURGERY: 06/21/2017 ROOM: 314 PREOPERATIVE DIAGNOSIS: Inadequate peripheral venous access. POSTOPERATIVE DIAGNOSIS: Inadequate peripheral venous access. PROCEDURE: Insertion of right subclavian vein triple-lumen catheter. SURGEON: SILVIO CALHOUN M.D. ANESTHESIA: Local. COMPLICATIONS: None. CONDITION: Stable. INDICATIONS FOR PROCEDURE: The patient is a 77-year-old male who presented with dysphagia and has not been able to eat for the last 2 days. The patient comes to the hospital, and peripheral venous access has been absent. The patient has been stuck over a dozen times, for whatever reason, and a central venous catheter recommendation was made, which should have been made a lot earlier, before he was stuck a dozen times. DESCRIPTION OF PROCEDURE: The patient's consent was obtained, and the patient's right neck and chest wall were prepped and draped in the usual sterile manner. The patient was placed in the Trendelenburg position. After timeout was achieved, local anesthesia was injected in the upper neck in an attempt to access the right external jugular vein. However, this could not be accessed, and then we abandoned any further attempts at accessing this vein. We then anesthetized the neck at the middle of the right anterior triangle and attempted to access the right internal jugular vein, which was unsuccessful as well. After several attempts at this, we abandoned any further attempts. Then the right chest in the space between the clavicle and the first rib was anesthetized, as this area had been prepped as well. We then accessed the right subclavian vein without difficulty, and with venous flush with syringe, the syringe was removed, and a guidewire was advanced. The patient's neck was turned towards me as I advanced the guidewire, in the hope that the guidewire would go into the superior vena cava and into the right atrium, into the superior vena cava as opposed to the internal jugular vein. We placed a vein dilator over the guidewire, and then, using a usual Seldinger technique, the triple-lumen catheter was advanced over the guidewire, and the guidewire was removed. There was good antegrade and retrograde flow through all lumens, and they were easily flushed with saline. The catheter was fixed at the 15-cm maria g, and portable chest x-ray showed that the catheter tip was going up towards the internal jugular vein. However, the catheter will be left in this position, and it can be used for medications, IV fluids, and pushes, but no TPN. The patient tolerated the procedure well, and access to the triple-lumen catheter has been granted. DICTATING PHYSICIAN: SILVIO CALHOUN M.D. [id number] PHY#: [id number] ID: [id number] JOB#: [id number] ACCT: [id number] cc:SILVIO CALHOUN M.D. >
[2017-06-22 19:57] VITALS: BP 152/69
== END 2017-06-22 20:20 | disposition short-term general hospital (02) | DRG 66 ==
LOC: ER 16:36 → OBSVTOIN 06-21 01:50 → EH 06-21 01:50 → 3W 06-21 07:05
PROVIDERS: ADMIT Internal Medicine; ATTEND Internal Medicine
PROC: 009U3ZX Drainage of Spinal Canal, Percutaneous Approach, Diagnostic (ICD-10-PCS; 2017-06-20)
PROC: 05HM33Z Insertion of Infusion Device into Right Internal Jugular Vein, Percutaneous Approach (ICD-10-PCS; principal; 2017-06-21)
DX: I63.9 Cerebral infarction, unspecified (principal); R13.10 Dysphagia, unspecified; I69.891 Dysphagia following other cerebrovascular disease; I25.10 Atherosclerotic heart disease of native coronary artery without angina pectoris; I10 Essential (primary) hypertension; R51 Headache; E78.5 Hyperlipidemia, unspecified; Z90.2 Acquired absence of lung [part of]; Z80.9 Family history of malignant neoplasm, unspecified; Z82.49 Family history of ischemic heart disease and other diseases of the circulatory system; Z79.82 Long term (current) use of aspirin; Z79.899 Other long term (current) drug therapy; Z88.8 Allergy status to other drugs, medicaments and biological substances; Z79.02 Long term (current) use of antithrombotics/antiplatelets
CPT/HCPCS: 36415; 70450; 71045; 74230; 80053; 80061; 81001; 82550; 82553; 82945; 83036; 83605; 84157; 84484; 85025; 85610; 85730; 87040; 87070; 87205; 87804; 89050; 93005; 93010; 96374; 96375; 99285; C1751; G0378; G8996-GN; G8997-GN; G8998-GN; J0360; J0780; J1200; J1642; J1885; J2270; J2405; J2800; J3230; J3490; J7040; J7120; S0028

== ENCOUNTER → 2018-03-17 | Outpatient (CLI) | payer MEDICARE, OTHER ==
[2018-03-17 11:35] LABS: ABSOLUTE BASOPHILS # (AUTO) 0.1 10^3/uL (0.0-0.2); ABSOLUTE EOSINOPHILS # (AUTO) 0.6 10^3/uL (0.0-0.6); ABSOLUTE LYMPHOCYTES (AUTO) 2.5 10^3/uL (0.5-4.7); ABSOLUTE MONOCYTES (AUTO) 1.5 10^3/uL (0.1-1.4); ABSOLUTE NEUT (AUTO) 5.2 10^3/uL (1.7-8.2); EOSINOPHILS % (AUTO) 5.9 % (0-6); HEMATOCRIT 45.5 % (37.9-51.0); HEMOGLOBIN 15.9 g/dL (13.5-17.0); LYMPHOCYTES % (AUTO) 25.4 % (13-45); MEAN CORPUSCULAR HEMOGLOBIN 34.8 pg (27.0-33.4); MEAN CORPUSCULAR HGB CONC 34.9 g/dL (32.0-36.0); MEAN CORPUSCULAR VOLUME 100 fl (80-97); MONOCYTES % (AUTO) 15.3 % (3-13); PLATELET COUNT 260 10^3/uL (150-450); RED BLOOD COUNT 4.55 10^6/uL (4.35-5.55); RED CELL DISTRIBUTION WIDTH 14.3 % (11.5-14.0); SEGMENTED NEUTROPHILS % (AUTO) 52.4 % (42-78); TOTAL CELLS COUNTED % (AUTO) 100 %
[2018-03-17 12:00] LABS: ALANINE AMINOTRANSFERASE 46 U/L (21-72); ALKALINE PHOSPHATASE 135 U/L (38-126); ANION GAP 11 (5-19); ASPARTATE AMINO TRANSFERASE 44 U/L (17-59); BILIRUBIN,DIRECT 0.3 mg/dL (0.0-0.4); BILIRUBIN,TOTAL 0.8 mg/dL (0.2-1.3); BLOOD UREA NITROGEN 16 mg/dL (7-20); CALCIUM 10.2 mg/dL (8.4-10.2); CARBON DIOXIDE 28 mmol/L (22-30); CHLORIDE 103 mmol/L (98-107); GLUCOSE 93 mg/dL (75-110); POTASSIUM 5.3 mmol/L (3.6-5.0); SODIUM 141.8 mmol/L (137-145); TOTAL PROTEIN 9.1 g/dL (6.3-8.2)
== END ==
LOC: OD 10:22
PROVIDERS: ATTEND Physician Assistant
DX: Z11.2 Encounter for screening for other bacterial diseases (principal); I10 Essential (primary) hypertension
CPT/HCPCS: 36415; 80053; 85025; 87070

== ENCOUNTER 2018-11-21 07:49 | Emergency (ER) | payer MEDICARE, OTHER ==
--- NOTE | 2018-11-21 09:03 | RADIOLOGY REPORT (SQ) ---
EXAM DESCRIPTION: CT HEAD WITHOUT COMPLETED DATE/TIME: 11/21/2018 8:50 am REASON FOR STUDY: fall, hit head, on plavix COMPARISON: 06/20/2017 TECHNIQUE: Axial images acquired through the brain without intravenous contrast. Images reviewed wi th bone, brain and subdural windows. Additional sagittal and coronal reconstructions were generated. Images stored on PACS. All CT scanners at this facility use dose modulation, iterative reconstruction, and/or weight based d osing when appropriate to reduce radiation dose to as low as reasonably achievable (ALARA). [facility]: Dose Right [facility]: CareDose [facility]: Dose Right [facility]: Teradose 4D [facility]: Top Rops RADIATION DOSE: CT Rad equipment meets quality standard of care and radiation dose reduction techniq ues were employed. CTDIvol: 53.2 mGy. DLP: 1070 mGy-cm. mGy. LIMITATIONS: None. FINDINGS: VENTRICLES: Normal size and contour. CEREBRUM: No masses. No hemorrhage. No midline shift. No evidence for acute infarction. Normal gra y/white matter differentiation. No areas of low density in the white matter. CEREBELLUM: No masses. No hemorrhage. No alteration of density. No evidence for acute infarction. EXTRAAXIAL SPACES: No fluid collections. No masses. ORBITS AND GLOBE: No intra- or extraconal masses. Normal contour of globe without masses. CALVARIUM: No fracture. PARANASAL SINUSES: No fluid or mucosal thickening. SOFT TISSUES: No mass or hematoma. OTHER: No other significant finding. IMPRESSION: No acute intracranial pathology. EVIDENCE OF ACUTE STROKE: NO. COMMENT: Quality ID # [id number]: Final reports with documentation of one or more dose reduction techniques (e.g., Automated exposure control, adjustment of the mA and/or kV according to patient size, use of iterative reconstruction technique) TECHNICAL DOCUMENTATION: JOB ID: [id number] [employer]- All Rights Reserved Reading location - IP/workstation name: [email or web address]
--- NOTE | 2018-11-21 09:15 | RADIOLOGY REPORT (SQ) ---
EXAM DESCRIPTION: CT LT UPPER EXTREMITY WITHOUT COMPLETED DATE/TIME: 11/21/2018 8:50 am REASON FOR STUDY: scapula and shoulder, fall, on plavix COMPARISON: None. TECHNIQUE: Axial imaging performed through the left shoulder with reformatted oblique coronal and ob lique sagittal imaging windowed for bone and soft tissues. All CT scanners at this facility use dose modulation, iterative reconstruction, and/or weight based d osing when appropriate to reduce radiation dose to as low as reasonably achievable (ALARA). [facility]: Dose Right [facility]: CareDose [facility]: Dose Right [facility]: Teradose 4D [facility]: Smart [employer] RADIATION DOSE: CT Rad equipment meets quality standard of care and radiation dose reduction techniq ues were employed. CTDIvol: 12.4 mGy. DLP: 304 mGy-cm. mGy. LIMITATIONS: None. FINDINGS: SOFT TISSUES: No abnormality. BONY ARCHITECTURE: There is a minimally displaced fracture of the posterior left 4th rib (series 2, i mage 52). Multiple additional callused fracture deformities of the lateral left ribs. The shoulder is intact. GLENOHUMERAL JOINT: Mild arthrosis. No dislocation. ACROMION AND AC JOINT: Mild arthrosis. OTHER: Small left pleural effusion. IMPRESSION: 1. No fracture or dislocation of the left shoulder or left scapula. Mild left acromioc lavicular and glenohumeral arthrosis. 2. Minimally displaced fracture of the posterior left 4th rib with a small left pleural effusion. N o pneumothorax. Multiple additional chronic fracture deformities of the lateral left ribs. TECHNICAL DOCUMENTATION: JOB ID: [id number] Quality ID # [id number]: Final reports with documentation of one or more dose reduction techniques (e.g., Au tomated exposure control, adjustment of the mA and/or kV according to patient size, use of iterative reconstruction technique) 2010 [facility]- All Rights Reserved Reading location - IP/workstation name: [email or web address]
[2018-11-21 10:17] VITALS: BP 154/88
--- NOTE | 2018-11-21 10:43 | ER Document Report ---
Entered by BROCK MALIK SCRIBE 11/21/18 0837 Acting as scribe for:ASTRID HARRY MD ED Fall - General Chief Complaint: Fall Injury Stated Complaint: FALL Time Seen by Provider: 11/21/18 08:08 Primary Care Provider: OLMAN HUSSEIN PA [PHYSICIAN BELT POLISHER] - Follow up as needed Notes: Patient is a 78-year-old male presenting to the emergency department complaining of a fall. Patient states that yesterday at about 1230 he attempted to pick his foot up over a gas hose, and that he tripped over it. Patient states that he fell harshly on his left shoulder and that he also hit his head and fell on his back. Patient states that on June 20, 2017 he suffered from a stroke. TRAVEL OUTSIDE OF THE [place] IN LAST 30 DAYS: No - Related data Allergies/Adverse Reactions: ceftriaxone [From Rocephin] Allergy (Verified 11/21/18 07:51) Past Medical History - General Information source: Patient - Social History Smoking Status: Never Smoker Cigarette use (# per day): No Chew tobacco use (# tins/day): No Frequency of alcohol use: None Drug Abuse: None Family History: CAD, Malignancy - Past Medical History Cardiac Medical History: Reports: Hx Coronary Artery Disease, Hx Hypertension Past Surgical History: Reports: Hx Abdominal Surgery - Exploratory laparotomy with splenectomy, thoracotomy, Hx Orthopedic Surgery - Rotator cuff repair, Hx Vascular Surgery - Right carotid endarterectomy, Other - Pneumonectomy, Review of Systems - Review of Systems Constitutional: No symptoms reported EENT: No symptoms reported Cardiovascular: No symptoms reported Respiratory: No symptoms reported Gastrointestinal: No symptoms reported Genitourinary: No symptoms reported Male Genitourinary: No symptoms reported Musculoskeletal: See HPI, Back pain, Muscle pain Skin: No symptoms reported Hematologic/Lymphatic: No symptoms reported Neurological/Psychological: No symptoms reported -: Yes All other systems reviewed and negative Physical Exam - Vital signs Vitals: Temp Pulse Resp BP Pulse Ox 97.7 F 79 16 151/80 H 96 11/21/18 07:55 11/21/18 07:55 11/21/18 07:55 11/21/18 07:55 11/21/18 07:55 - Notes Notes: Physical Exam: General: Alert, appears well. HEENT: Normocephalic. Atraumatic. PERRL. Extraocular movements intact. Oropharynx clear. Neck: Supple. Left medial scapula musculature tenderness to palpation. Levator scapula musculature tenderness to palpation. Respiratory: No respiratory distress. Clear and equal breath sounds bilaterally. Cardiovascular: Regular rate and rhythm. Abdominal: Normal Inspection. Non-tender. No distension. Normal Bowel Sounds. Back: Non-tender. No deformity or step off. Extremities: Moves all four extremities. Upper extremities: Normal inspection. Normal ROM. Lower extremities: Normal inspection. No edema. Normal ROM. Neurological: Normal cognition. AAOx4. Normal speech. Psychological: Normal affect. Normal Mood. Skin: Warm. Dry. Normal color. Course - Vital Signs Vital signs: Temp Pulse Resp BP Pulse Ox 97.7 F 79 16 154/88 H 98 11/21/18 10:16 11/21/18 10:16 11/21/18 10:16 11/21/18 10:16 11/21/18 10:16 - Diagnostic Test Radiology reviewed: Image reviewed, Reports reviewed - CT scan of the head is unremarkable. CT scan of the left scapular region shows a minimally displaced fracture of the left posterior fourth rib with a small pleural effusion. No pneumothorax. Multiple chronic left rib fractures. Discharge - Discharge Clinical Impression: Fractured rib Qualifiers: Encounter type: initial encounter Rib fracture type: single rib Fracture type: closed Laterality: left Qualified Code(s): S22.32XA - Fracture of one rib, left side, initial encounter for closed fracture Head contusion Qualifiers: Encounter type: initial encounter Contusion of head detail: scalp Qualified Code(s): S00.03XA - Contusion of scalp, initial encounter Condition: Stable Disposition: HOME, SELF-CARE Additional Instructions: Rib Injuries and Fractures You have been diagnosed as having either bruised or broken ribs. These two injuries are treated in the same way. It will usually take four to six weeks for these injured ribs to heal. Sometimes, rib belts or anesthetic injections of the chest wall help reduce the pain. If you are using a rib belt, you should cough or take a deep breath at least every hour or two to prevent lung complications. You should not engage in any strenuous physical activity until released by your physician. The usual rule is "if it hurts, don't do it." Rib fractures can lead to serious lung complications including lung collapse, hemorrhage, and pneumonia. You should call the physician or return at once if any of the following occur: (1) Fever or chills. (2) Persistent cough, coughing up blood, or shortness of breath. (3) Increasing pain. (4) Weakness, lightheadedness, or fainting. Referrals: OLMAN HUSSEIN PA [PHYSICIAN BELT POLISHER] - Follow up as needed Scribe Attestation: 11/21/18 09:41 I personally performed the services described in the documentation, reviewed and edited the documentation which was dictated to the scribe in my presence, and it accurately records my words and actions. I personally performed the services described in the documentation, reviewed and edited the documentation which was dictated to the scribe in my presence, and it accurately records my words and actions.
== END 2018-11-21 10:17 | disposition home or self-care (01) ==
LOC: ER 07:49
DX: S00.03XA Contusion of scalp, initial encounter (principal); S22.32XA Fracture of one rib, left side, initial encounter for closed fracture; I25.10 Atherosclerotic heart disease of native coronary artery without angina pectoris; I10 Essential (primary) hypertension; W01.0XXA Fall on same level from slipping, tripping and stumbling without subsequent striking against object, initial encounter; Z86.73 Personal history of transient ischemic attack (TIA), and cerebral infarction without residual deficits
CPT/HCPCS: 70450; 99283

== ENCOUNTER 2020-05-16 11:46 | Emergency (ER) | payer MEDICARE, OTHER ==
--- NOTE | 2020-05-16 12:20 | ER Document Report ---
ED Medical Screen (RME) - General Chief Complaint: Other Stated Complaint: FEELS LIKE SOMETHING IN THROAT Time Seen by Provider: 05/16/20 12:19 Primary Care Provider: MIRANDA HOLBROOK MD [Primary Care Provider] - Follow up as needed Mode of Arrival: Ambulatory Information source: Patient Notes: 80-year-old male presented to ED for aspiration of a piece of sausage about an hour ago. He states he was able to cough some of it up but some of it is still in his throat. He does have a history of a stroke high blood pressure and surgeries. He states he does not smoke drink or use any illicit drugs. He is alert oriented respirations regular and unlabored and is able to answer questions. He said he does have a nasty cough due to swallowing the object. I have greeted and performed a rapid initial assessment of this patient. A comprehensive ED assessment and evaluation of the patient, analysis of test results and completion of medical decision making process will be conducted by an additional ED providers. TRAVEL OUTSIDE OF THE [place] IN LAST 30 DAYS: No - Related Data Allergies/Adverse Reactions: ceftriaxone [From Rocephin] Allergy (Verified 05/05/20 12:20) Past Medical History - Past Medical History Cardiac Medical History: Reports: Hx Coronary Artery Disease, Hx Hypertension Renal/ Medical History: Denies: Hx Peritoneal Dialysis Past Surgical History: Reports: Hx Abdominal Surgery - Exploratory laparotomy with splenectomy, thoracotomy, Hx Bowel Surgery, Hx Orthopedic Surgery - Rotator cuff repair, Hx Vascular Surgery - Right carotid endarterectomy, Other - Pneumonectomy, Physical Exam - Vital signs Vitals: Temp Pulse Resp BP Pulse Ox 97.5 F 84 18 165/74 H 95 05/16/20 00:04 05/16/20 00:04 05/16/20 00:04 05/16/20 00:04 05/16/20 00:04 Course - Vital Signs Vital signs: Temp Pulse Resp BP Pulse Ox 97.5 F 84 18 165/74 H 95 05/16/20 00:04 05/16/20 00:04 05/16/20 00:04 05/16/20 00:04 05/16/20 00:04 Doctor's Discharge - Discharge Referrals: MIRANDA HOLBROOK MD [Primary Care Provider] - Follow up as needed
[2020-05-16 14:21] LABS: ABSOLUTE BASOPHILS # (AUTO) 0.1 10^3/uL (0.0-0.2); ABSOLUTE EOSINOPHILS # (AUTO) 0.8 10^3/uL (0.0-0.6); ABSOLUTE LYMPHOCYTES (AUTO) 2.7 10^3/uL (0.5-4.7); ABSOLUTE MONOCYTES (AUTO) 1.2 10^3/uL (0.1-1.4); ABSOLUTE NEUT (AUTO) 4.5 10^3/uL (1.7-8.2); EOSINOPHILS % (AUTO) 8.7 % (0-6); HEMATOCRIT 40.9 % (37.9-51.0); HEMOGLOBIN 14.3 g/dL (13.5-17.0); MEAN CORPUSCULAR HEMOGLOBIN 34.4 pg (27.0-33.4); MEAN CORPUSCULAR VOLUME 98 fl (80-97); MONOCYTES % (AUTO) 12.9 % (3-13); PLATELET COUNT 192 10^3/uL (150-450); RED BLOOD COUNT 4.17 10^6/uL (4.35-5.55); RED CELL DISTRIBUTION WIDTH 13.6 % (11.5-14.0); SEGMENTED NEUTROPHILS % (AUTO) 48.4 % (42-78); TOTAL CELLS COUNTED % (AUTO) 100 %; WHITE BLOOD COUNT 9.2 10^3/uL (4.0-10.5)
[2020-05-16 14:38] LABS: ALBUMIN 4.6 g/dL (3.5-5.0); ALKALINE PHOSPHATASE 124 U/L (38-126); ANION GAP 10 (5-19); ASPARTATE AMINO TRANSFERASE 63 U/L (17-59); BILIRUBIN,DIRECT 0.2 mg/dL (0.0-0.4); BILIRUBIN,TOTAL 0.6 mg/dL (0.2-1.3); BLOOD UREA NITROGEN 16 mg/dL (7-20); CALCIUM 9.6 mg/dL (8.4-10.2); CARBON DIOXIDE 21 mmol/L (22-30); CHLORIDE 106 mmol/L (98-107); GLUCOSE 107 mg/dL (75-110); POTASSIUM 4.6 mmol/L (3.6-5.0); TOTAL PROTEIN 8.4 g/dL (6.3-8.2)
--- NOTE | 2020-05-16 17:44 | RADIOLOGY REPORT (SQ) ---
EXAM DESCRIPTION: CT SOFT TISSUE NECK WITHOUT IMAGES COMPLETED DATE/TIME: 05/16/2020 3:22 pm REASON FOR STUDY: Airway obstruction COMPARISON: None. TECHNIQUE: Noncontrast scanning from skull base through lung apices with review of bone, soft tissue and lung windows. Reconstructed coronal and sagittal MPR images reviewed. All images stored on PAC S. All CT scanners at this facility use dose modulation, iterative reconstruction, and/or weight based d osing when appropriate to reduce radiation dose to as low as reasonably achievable (ALARA). [facility]: Dose Right [facility]: CareDose [facility]: Dose Right [facility]: Teradose 4D [facility]: [employer] RADIATION DOSE: mGy. LIMITATIONS: None. FINDINGS: SKULL BASE: Intact. MAJOR SALIVARY GLANDS: No solid or cystic masses. No inflammatory changes. LYMPHADENOPATHY: No adenopathy. MUCOSAL MASSES OR ASYMMETRY: No mucosal masses or asymmetry. LARYNX/CORDS: No abnormal findings. LUNG APICES: Clear. BONES: Intact. THYROID: Normal size. No masses. PARANASAL SINUSES: Clear. OTHER: There is no abnormality in the trachea to the bifurcation. IMPRESSION: NO SIGNIFICANT FINDING IN THE SOFT TISSUES OF THE NECK. TECHNICAL DOCUMENTATION: JOB ID: [id number] Quality ID # [id number]: Final reports with documentation of one or more dose reduction techniques (e.g., Au tomated exposure control, adjustment of the mA and/or kV according to patient size, use of iterative reconstruction technique) 2010 [employer] All Rights Reserved Reading location - IP/workstation name: [email or web address]
--- NOTE | 2020-05-16 18:09 | ER Document Report ---
ED ENT - General Chief Complaint: Difficulty Swallowing Stated Complaint: FEELS LIKE SOMETHING IN THROAT Time Seen by Provider: 05/16/20 12:19 Primary Care Provider: MIRANDA HOLBROOK MD [Primary Care Provider] - Follow up as needed Mode of Arrival: Ambulatory Information source: Patient Notes: This 80-year-old man presents to the emergency department with a history of apparently got choked on a piece of sausage this morning. He states that it went down the wrong way got caught in his airway. Since arriving to the emergency department he is doing much better states that he is having no problems swallowing. He is concerned though that there is some irritation and discomfort in the area of the throat and posterior pharynx. He has had some swallowing difficulties since stroke several years ago. TRAVEL OUTSIDE OF THE [place] IN LAST 30 DAYS: No - Related Data Allergies/Adverse Reactions: ceftriaxone [From Rocephin] Allergy (Verified 05/16/20 12:40) Past Medical History - General Information source: Patient - Social History Smoking Status: Unknown if Ever Smoked Family History: CAD, Malignancy Patient has homicidal ideation: No - Past Medical History Cardiac Medical History: Reports: Hx Coronary Artery Disease, Hx Hypertension Renal/ Medical History: Denies: Hx Peritoneal Dialysis Past Surgical History: Reports: Hx Abdominal Surgery - Exploratory laparotomy with splenectomy, thoracotomy, Hx Bowel Surgery, Hx Orthopedic Surgery - Rotator cuff repair, Hx Vascular Surgery - Right carotid endarterectomy, Other - Pneumonectomy, Review of Systems - Review of Systems Notes: Constitutional: Negative for fever. HENT: See HPI Eyes: Negative for visual changes. Cardiovascular: Negative for chest pain. Respiratory: Negative for shortness of breath. Gastrointestinal: Negative for abdominal pain, vomiting or diarrhea. Genitourinary: Negative for dysuria. Musculoskeletal: Negative for back pain. Skin: Negative for rash. Neurological: Negative for headaches, weakness or numbness. 10 point ROS negative except as marked above and in HPI. Physical Exam - Vital signs Vitals: Temp Pulse Resp BP Pulse Ox 97.5 F 84 18 165/74 H 95 05/16/20 00:04 05/16/20 00:04 05/16/20 00:04 05/16/20 00:04 05/16/20 00:04 - Notes Notes: PHYSICAL EXAMINATION: Physical Exam: General: Well-nourished well-developed 80-year-old male in no acute distress HEENT: NC/AT, pupils equal round and reactive to light, MM moist,nares clear, oropharynx clear, airway patent swallowing without difficulty Neck: supple, no adenopathy, no masses. Good range of motion Lungs: Good air movement, no wheezes rales or rhonchi CVS: Regular rate and rhythm no murmur gallop or rub Abdomen: Soft, active, nontender, no masses, no hepatosplenomegaly Ext: No edema, clubbing or cyanosis. Neuro: Alert and responsive, moving all 4 extremities on command, cranial nerves intact, no focal findings Skin: Intact no open lesions, no rash Course - Re-evaluation Re-evalutation: 05/16/20 18:05 Patient has presented with a history of a foreign body/food bolus which apparently went down the wrong. It is since resolved and the patient is doing much better. States that he is prone to getting choked since the stroke. He is presently not on a restricted diet with thicket. - Vital Signs Vital signs: Temp Pulse Resp BP Pulse Ox 97.5 F 84 18 165/74 H 95 05/16/20 00:04 05/16/20 00:04 05/16/20 00:04 05/16/20 00:04 05/16/20 00:04 - Laboratory Results Result Diagrams: 05/16/20 14:04 05/16/20 14:04 Laboratory Results Interpreted: 05/16/20 05/16/20 14:04 14:04 RBC 4.17 L MCV 98 H MCH 34.4 H Eos % (Auto) 8.7 H Absolute Eos (auto) 0.8 H Sodium 136.6 L Carbon Dioxide 21 L AST 63 H ALT 67 H Total Protein 8.4 H 05/16/20 18:06 I have reviewed laboratory data and used this information for the treatment decisions regarding the patient. Critical Laboratory Results Reviewed: No Critical Results - Radiology Results Radiology Results Interpreted: 05/16/20 18:[address] 05/16/20 15:17 IMPRESSION: NO SIGNIFICANT FINDING IN THE SOFT TISSUES OF THE NECK. Critical Radiology Results Reviewed: No Critical Results Discharge - Discharge Clinical Impression: Dysphagia as late effect of cerebrovascular accident (CVA), Choking episode Condition: Good Disposition: HOME, SELF-CARE Instructions: Dysphagia ([facility]) Additional Instructions: You were seen in the emergency department today after a episode of choking on a piece of sausage. Since then the symptoms have resolved and your airway is clear on the images from the CT scan. Care should be taking and making sure that you chew your food and swallow carefully. Please follow-up with your primary care doctor as needed If your symptoms are worsening or if you have other concerns you may return to the emergency department for further evaluation and treatment HOME CARE INSTRUCTIONS & INFORMATION: Thank you for choosing us for your medical needs. We hope you're satisfied with the care you received. After you leave, you must properly care for your problem and, at the same time, observe its progress. Any condition can change. Some illnesses can change rapidly over hours or days. If your condition worsens, return to the Emergency Department or see your physician promptly. ABOUT YOUR X-RAYS AND EKG'S: If you had an EKG or X-rays taken, they have been read by the Emergency Physician. The X-rays and EKG's will also be read by a Radiologist or Marketing Database Analyst within 24 hours. If discrepancies are noted, you will be notified by telephone. Please be certain the ED has a correct telephone number & address where you can be reached. Also, realize that some fractures or abnormalities do not show up on initial X-rays. If your symptoms continue, see your physician. ABOUT YOUR LABORATORY TEST: If you had laboratory tests, the results have been reviewed by the Emergency Physician. Some test results (for example cultures) may not be available for several days. You will be contacted if any test result shows you need additional treatment. Please be certain the ED has a correct telephone number and address where you can be reached. ABOUT YOUR MEDICATIONS: You will receive instructions on how to take your medicine on the prescription label you receive. Additional information may be provided by the Pharmacy. If you have questions afterwards, call the ED for clarification or further instructions. Some prescribed medications may cause drowsiness. Do not perform tasks such as driving a car or operating machinery without consulting your Pharmacist. If you feel you need a refill of pain medication, your condition will need re-evaluation. Please do not call for a refill of any medication. ABOUT YOUR SIGNATURE: Signature of this document acknowledges to followin. Understanding that you received emergency treatment and that you may be released before al medical problems are known or treated. Please be certain the ED has a correct phone number & address where you can be reached. 2. Acknowledgement that you will arrange for follow-up care as recommended. 3. Authorization for the Emergency Physician to provide information to your follow-up Physician in order to maximize your care. AT ANY TIME, IF YOUR SYMPTOMS CHANGE SIGNIFICANTLY OR WORSEN OR YOU DEVELOP NEW SYMPTOMS, RETURN TO THE EMERGENCY DEPARTMENT IMMEDIATELY FOR RE-EVALUATION. OUR GOAL IS TO PROVIDE EXCELLENT MEDICAL CARE! WE HOPE THAT WE HAVE MET YOUR EXPECTATIONS DURING YOUR EMERGENCY DEPARTMENT VISIT AND THAT YOU FEEL YOU HAVE RECEIVED EXCELLENT CARE! Referrals: MIRANDA HOLBROOK MD [Primary Care Provider] - Follow up as needed
[2020-05-16 18:37] VITALS: BP 146/98
== END 2020-05-16 18:37 | disposition home or self-care (01) ==
LOC: ER 11:46
DX: I69.991 Dysphagia following unspecified cerebrovascular disease (principal); R13.10 Dysphagia, unspecified; I10 Essential (primary) hypertension; I25.10 Atherosclerotic heart disease of native coronary artery without angina pectoris
CPT/HCPCS: 36415; 70490; 80053; 85025; 99284